=== PATIENT | female | born 1955 | race Caucasian/White ===

== ENCOUNTER → 2020-08-14 | Outpatient (CLI) | payer OTHER ==
[~2020-08-14] MED LIST: FAMOTIDINE 20 M20 MG PO; METOCLOPRAM5 MG/5 M3 PO; ZOFRAN ODT4 MG PO; ZPAK PO
== END ==
LOC: LAB 15:52
PROVIDERS: ATTEND Hospitalist
DX: Z20.828 Contact with and (suspected) exposure to other viral communicable diseases (principal)

== ENCOUNTER 2020-08-29 16:55 | Emergency (ER) | payer OTHER ==
[~2020-08-29] VITALS: Ht 167.6 cm; Wt 85.7 kg
[2020-08-29] MEDS ORDERED: METOCLOPRAM5 MG/5 M3 PO (17:13)
[2020-08-29] MEDS ORDERED: FAMOTIDINE 20 M20 MG PO (17:13)
[2020-08-29 17:54] LABS: ABSOLUTE NEUTROPHILS 2.4 thou/uL (1.4-8.2); BASOPHILS 0.4 % (0.0-2.0); HEMATOCRIT 39.8 % (37.0-47.0); HEMOGLOBIN 13.8 gm/dL (12.0-15.0); LYMPHOCYTES 27.2 % (24.0-44.0); MCH 29.8 pg (26.0-34.0); MCHC 34.6 g/dL (28.0-37.0); MCV 86.2 fL (80.0-100.0); MONOCYTES 9.6 % (1.0-8.0); PLATELET COUNT 317 thou/uL (150-400); POLYS 62.8 % (36.0-66.0); RBC 4.62 mil/uL (4.20-5.00); RDW 12.6 % (10.5-14.5); WBC 3.9 thou/uL (4.0-11.0)
[2020-08-29 17:57] LABS: CALCIUM 8.9 mg/dL (8.5-10.1); CREATININE 0.7 mg/dL (0.6-1.0); POTASSIUM 3.4 mmol/L (3.5-5.1)
[2020-08-29 18:04] LABS: ALBUMIN 3.1 g/dL (3.4-5.0); DIRECT BILIRUBIN 0.2 mg/dL (<0.1-0.2); TOTAL BILIRUBIN 0.7 mg/dL (0.2-1.0)
[2020-08-29 18:26] LABS: URINE BILIRUBIN 1+ (Negative); URINE BLOOD NEGATIVE (Negative); URINE CLARITY CLEAR; URINE COLOR YELLOW; URINE GLUCOSE-RANDOM* 3+ (Negative); URINE KETONES 2+ (Negative); URINE LEUKOCYTES-REFLEX NEGATIVE (Negative); URINE NITRITE-REFLEX NEGATIVE (Negative); URINE PROTEIN (DIPSTICK) 2+ (Negative)
[2020-08-29 18:27] LABS: ICTOTEST (BILI CONFIRMATORY) Negative (Negative)
[2020-08-29 18:31] LABS: BACTERIA-REFLEX 1-9 Few /HPF (None Seen); CRYSTALS None Seen /LPF (None Seen); YEAST-REFLEX Present (None Seen)
[2020-08-29 18:32] LABS: CASTS None Seen /LPF (None Seen); SQUAMOUS 0-3 Few /LPF (0-3); URINE RBC None Seen /HPF (0-2); URINE WBC-REFLEX 0-5 Rare /HPF (0-5)
[2020-08-29 20:09] LABS: BE(vivo) -4.2 mmol/L (-2 to +3); HCO3 19.4 mmol/L (22.0-26.0); PCO2 VENOUS 31.7 mmHg (41.0-51.0); PO2 VENOUS 75.6 mmHg (35.0-45.0)
[2020-08-29] MEDS ORDERED: ZOFRAN ODT4 MG PO (20:38)
[2020-08-29] MEDS ORDERED: ZPAK PO (20:38)
[2020-08-29 21:53] VITALS: BP 131/82
== END 2020-08-29 21:53 | disposition home or self-care (01) ==
LOC: ER 16:55
PROVIDERS: Emergency Medicine
DX: U07.1 COVID-19 (principal); R11.2 Nausea with vomiting, unspecified; E11.9 Type 2 diabetes mellitus without complications; I10 Essential (primary) hypertension; Z79.899 Other long term (current) drug therapy; Z88.6 Allergy status to analgesic agent; Z88.2 Allergy status to sulfonamides; Z88.8 Allergy status to other drugs, medicaments and biological substances

== ENCOUNTER 2020-08-30 18:19 | Inpatient (IN) | payer OTHER ==
[~2020-08-30] VITALS: Ht 167.6 cm; Wt 83.0 kg
[2020-08-30 18:20] VITALS: BP 125/83
[2020-08-30 18:55] LABS: ABSOLUTE NEUTROPHILS 2.1 thou/uL (1.4-8.2); BASOPHILS 1.9 % (0.0-2.0); HEMATOCRIT 40.5 % (37.0-47.0); HEMOGLOBIN 13.6 gm/dL (12.0-15.0); MCH 29.2 pg (26.0-34.0); MCHC 33.6 g/dL (28.0-37.0); MONOCYTES 9.7 % (1.0-8.0); PLATELET COUNT 330 thou/uL (150-400); POLYS 52.4 % (36.0-66.0); RBC 4.66 mil/uL (4.20-5.00); RDW 12.4 % (10.5-14.5); WBC 4.1 thou/uL (4.0-11.0)
[2020-08-30 19:05] LABS: CALCIUM 8.7 mg/dL (8.5-10.1); CREATININE 0.8 mg/dL (0.6-1.0); POTASSIUM 3.2 mmol/L (3.5-5.1)
[2020-08-30 19:11] LABS: TOTAL BILIRUBIN 0.7 mg/dL (0.2-1.0); TOTAL PROTEIN 8.1 g/dL (6.4-8.2)
[2020-08-30 19:28] VITALS: BP 121/74
[2020-08-30 20:57] VITALS: BP 121/74
[2020-08-30 21:54] VITALS: BP 114/58
[2020-08-31] VITALS (16 sets, daily range): BP systolic 101–135; BP diastolic 50–79
--- NOTE | 2020-08-31 02:52 | NUR ---
PT ADMITTED TO ICU 241. STEADY GAIT UP TO BSC. PT STATES SHE FEELS TERRIBLE, AND HURTS ALL OVER-FENTANYL ORDERED. 02SAT 95 ON RA. NO RESP DISTRESS. DOES BECOME TACHYCARDIC WITH ACTIVITY. ST WITH OCCAS PVC. MAINT IV STARTED. TEMP 98.4 AX. PT SHIVERING. PLACED IN ENHANCED PRECAUTIONS. WILL CONT TO MONITOR
[2020-08-31 07:15] LABS: HEMATOCRIT 39.7 % (37.0-47.0); MCHC 32.8 g/dL (28.0-37.0); MCV 88.2 fL (80.0-100.0); RBC 4.5 mil/uL (4.20-5.00); RDW 12.7 % (10.5-14.5); WBC 3.2 thou/uL (4.0-11.0)
[2020-08-31 08:40] LABS: CALCIUM 8.8 mg/dL (8.5-10.1); CREATININE 0.7 mg/dL (0.6-1.0); POTASSIUM 4.2 mmol/L (3.5-5.1)
--- NOTE | 2020-08-31 09:53 | NUR ---
PT WAS SAD/TEARFUL IN THE MORNING, STATED GRIEF ABOUT [place] COVID. RN REASSURED TO THE PT THAT AT THE ICU SHE WILL RECEIVE THE HIGHEST QUALITY CARE UNDER CLOSE SUPERVISON. PT STATED UNDERSTANDING AND WAS ABLE TO BE CONSOLED. MEDICATION/CAREPLAN/GOALS WERE DISCUSSED. PT VERBALIZED UNDERSTANDING. PT AMBULATED TO THE BATHROOM AFTER SET UP INDEPNDANTLY, TOLERATED FAIRLY. PT WAS LATER SEEN TO DESAT 93% ON RA WHILE RESTING, RN PLACED THE PT BACK ON NC AT 1L. BS THIS MORNING WAS HIGH AT 272. PT IS TOLERATING PO WELL, HAD COUPLE CUPS OF JELLO.
--- NOTE | 2020-08-31 11:45 | NUR ---
TALKED WITH DAUGHTER ON THE PHONE. UPDATE GIVEN ON PT CONDITION.
[2020-09-01] VITALS (19 sets, daily range): BP systolic 80–135; BP diastolic 46–88
--- NOTE | 2020-09-01 03:07 | NUR ---
PT HAS BEEN AFEBRILE SO FAR THIS SHIFT. SPO2 >90% ON RA. MILDLY SOA WITH EXERTION WHEN GETTING UP THE TO BSC. ADEQUATE URINE OUTPUT. PT C/O GENERALIZED BODY ACHES. PRN FENTANYL GIVEN. PT REFUSED TYLENOL FOR PAIN, STATING IT UPSETS HER STOMACH. PT WAS TEARFUL EARLIER IN THE NIGHT; C/O FEELING GENERALLY UNWELL AND FATIGUED. ZOFRAN AND TRAZODONE GIVEN AT BEDTIME. PT HAS SINCE BEEN SLEEPING MOST OF THE NIGHT. RESPIRATIONS EVEN AND UNLABORED. SHE CALLS OUT APPROPRIATELY FOR ASSISTANCE WHEN NEEDED. PROGRESSING SLOWLY TOWARD POC GOALS. WILL CONTINE TO MONITOR.
[2020-09-01 05:56] LABS: ABSOLUTE NEUTROPHILS 2.9 thou/uL (1.4-8.2); BASOPHILS 0.3 % (0.0-2.0); HEMATOCRIT 34.7 % (37.0-47.0); HEMOGLOBIN 11.7 gm/dL (12.0-15.0); LYMPHOCYTES 29.2 % (24.0-44.0); MCH 29.1 pg (26.0-34.0); MCHC 33.6 g/dL (28.0-37.0); MCV 86.7 fL (80.0-100.0); MONOCYTES 8.8 % (1.0-8.0); PLATELET COUNT 323 thou/uL (150-400); POLYS 61.7 % (36.0-66.0); RBC 4.01 mil/uL (4.20-5.00); RDW 12.2 % (10.5-14.5); WBC 4.7 thou/uL (4.0-11.0)
--- NOTE | 2020-09-01 06:01 | NUR ---
0594 - SPOKE WITH PT'S DAUGTHER (EMMETT). UPDATE PROVIDED ON HOW PT DID DURING THE NIGHT. PT SLEPT MOST OF THE NIGHT. AFEBRILE. REMAINS ON RA. WILL GIVE REPORT TO ONCOMING NURSE.
[2020-09-01 06:04] LABS: FIBRINOGEN 396.6 mg/dL (210-360); PROTIME 10.7 Seconds (9.3-11.4)
[2020-09-01 06:20] LABS: ALBUMIN 2.3 g/dL (3.4-5.0); CALCIUM 8.8 mg/dL (8.5-10.1); CREATININE 0.6 mg/dL (0.6-1.0); POTASSIUM 3.7 mmol/L (3.5-5.1); TOTAL BILIRUBIN 0.3 mg/dL (0.2-1.0); TOTAL PROTEIN 6.7 g/dL (6.4-8.2)
--- NOTE | 2020-09-01 09:05 | NUR ---
PT HAD LARGE EMESIS FROM HER BREAKFAST. PT ATE ALL HER BREAKFAST EXCEPT HER CEREAL AND DRANK BOTH OF HER ENSURE. PT HAD APPOX 400 ML OF EMESIS
--- NOTE | 2020-09-01 11:31 | NUR ---
chart review. unable to visit with [facility] on ppe, + covid and is resting. IV meds cont. will cont following as needed for dc needs.
--- NOTE | 2020-09-01 11:40 | NUR ---
TALKED WITH DAUGHTER ON PHONE. UPDATED ON PT CONDITION AND PLAN OF CARE.
--- NOTE | 2020-09-01 12:21 | NUR ---
TALKED WITH DAUGHTER ON PHONE. UPDATED ON PT CONDITION AND PLAN OF CARE.
--- NOTE | 2020-09-01 17:57 | NUR ---
PT PROGRESSING TOWARDS GOALS. ATE LUNCH AND DINNER WITH NO NAUSEA. PO INTAKE GOOD. URINE OUTPUT GOOD. AWAITING ROOM OUT OF ICU. RA THROUGHOUT THE SHIFT.
--- NOTE | 2020-09-01 22:39 | NUR ---
ASSUMED CARE OF PATIENT AT 1900. VERY TEARFUL, WORRIED SHE WILL GET WORSE. BECOMING MORE TIRED. O2 SAT'S IN THE LOW 90'S R/A. ORDERS TO TRANSFER TO . WILL SEND WITH ALL BELONGINGS.
--- NOTE | 2020-09-02 00:24 | NUR ---
RECEIVED PHONE REPORT FROM KIT IN ICU AT 2300. TRANSPORTED PT BY W/C FROM ICU TO ROOM 358. PT AFEBRILE, ON RA, TRANFERRED UNDER HER OWN POWER. PLACED ON TELE AND VS COMPLETED. WILL CONTINUE TO MONITOR.
[2020-09-02 03:22] VITALS: BP 115/73
[2020-09-02 07:03] LABS: ALBUMIN 2.3 g/dL (3.4-5.0); DIRECT BILIRUBIN < 0.1 mg/dL (<0.1-0.2); SGOT 13 U/L (15-37); SGPT 11 U/L (30-65); TOTAL BILIRUBIN 0.4 mg/dL (0.2-1.0); TOTAL PROTEIN 6.3 g/dL (6.4-8.2)
[2020-09-02 08:27] VITALS: BP 107/65
[2020-09-02 11:38] VITALS: BP 105/71
--- NOTE | 2020-09-02 16:03 | NUR ---
MARIVEL reviewed chart and spoke with nursing and attending physician. Pt was transferred to from ICU. Pt is in Enhanced Isolation due to COVID-19. Pt is afebrile and not requiring O2. Pt is on IV abx and completing course of Remdesivir. Therapy is working with pt to assist with recommendations for discharge. MARIVEL placed call to pt's room. No answer. Pt is an employee at [employer] and has insurance. MARIVEL discussed case with 5N rehabilitation liaison for possible 5N eval if post-acute care is needed. MARIVEL is following to assist as needed with discharge planning.
[2020-09-02 16:35] VITALS: BP 105/70
--- NOTE | 2020-09-02 19:41 | NUR ---
ASSUMED CARE APPROX 0700. PT ALERT AND ORIENTED X4. ASSESSMENTS CHARTED AND VSS. PT AFEBRILE THIS SHIFT. ON ROOM AIR W/O DISTRESS NOTED. SR TO SB ON TELE MONITOR. PT DENIED N/V THIS SHIFT UNTIL ABOUT 1715. PT VOMITED AFTER DINNER. REPORTS RELIEF AFTER ZOFRAN. SLOWLY PROGRESSING TOWARDS POC GOALS.
[2020-09-02 20:15] VITALS: BP 118/75
[2020-09-03 04:58] VITALS: BP 114/80
[2020-09-03 06:13] LABS: ALBUMIN 2.5 g/dL (3.4-5.0); CALCIUM 8.6 mg/dL (8.5-10.1); CREATININE 0.5 mg/dL (0.6-1.0); DIRECT BILIRUBIN 0.1 mg/dL (<0.1-0.2); TOTAL BILIRUBIN 0.4 mg/dL (0.2-1.0); TOTAL PROTEIN 6.7 g/dL (6.4-8.2)
[2020-09-03 06:15] LABS: POTASSIUM 2.9 mmol/L (3.5-5.1)
--- NOTE | 2020-09-03 06:27 | NUR ---
ASSUMED CARE AT 1900. PT REPORTS GENERALIZED BODY ACHES 07/16; GAVE FENTANYL MULTIPLE TIMES OVERNIGHT. PT REPORTS FEELING CONSTIPATED AND NOT GETTING RELIEF WITH PRUNE JUICE; PT ASKED TO TAKE MIRALAX WITH AM MEDS. POTASSIUM CRITICAL LOW 2.9, OBTAINED ORDER FOR PO DOSE REPLACEMENT. NO OTHER CONCERNS, WILL CONTINUE TO MONITOR.
[2020-09-03 08:40] VITALS: BP 152/93
[2020-09-03 12:25] VITALS: BP 123/73
--- NOTE | 2020-09-03 13:04 | NUR ---
cm f/u w/pt to discuss d/c planning. pt stated she lives in an apt alone, usu active and independent w/adls. pt has good friend/family support. pt has 0 DMEs . Denies hx w/snf or hh. pt works at [employer].
[2020-09-03 17:00] VITALS: BP 110/68
--- NOTE | 2020-09-03 18:32 | NUR ---
assumed care of pt at 0700. pt aox4 in no acute distress. intermittent pain and nausea - good relief with current med regimen. on room air. up ad rick. anticipating possible d/c tomorrow.
[2020-09-03 19:08] VITALS: BP 113/77
[2020-09-04 03:58] VITALS: BP 130/88
--- NOTE | 2020-09-04 04:43 | NUR ---
POC FOR PT WAS PAIN MANAGEMENT AND NAUSEA CONTROL. PT REQUEST Q4 IV PAIN MEDICATION. PT ON ROOM AIR. PT FACETIMED WITH DAUGHTER THIS EVENING. DURING ASSESSMENT PT STILL EXTREMELY EXHAUSTED AND LACK OF ENERGY. 3RD DOSE OF REMDESIVIR GIVEN. PT WANTING TO GO HOME TODAY. VSS AND NO FEVER.
[2020-09-04 06:51] LABS: ALBUMIN 1.8 g/dL (3.4-5.0); CREATININE 0.5 mg/dL (0.6-1.0); DIRECT BILIRUBIN 0.1 mg/dL (<0.1-0.2); TOTAL BILIRUBIN 0.4 mg/dL (0.2-1.0); TOTAL PROTEIN 6.2 g/dL (6.4-8.2)
[2020-09-04 07:30] VITALS: BP 130/90
[2020-09-04 10:37] LABS: HEMOGLOBIN 11.9 gm/dL (12.0-15.0); MCH 28.8 pg (26.0-34.0); MCV 87.3 fL (80.0-100.0); PLATELET COUNT 430 thou/uL (150-400); RBC 4.12 mil/uL (4.20-5.00); RDW 12.8 % (10.5-14.5); WBC 4.9 thou/uL (4.0-11.0)
[2020-09-04 10:53] LABS: CALCIUM 8.7 mg/dL (8.5-10.1); CREATININE 0.6 mg/dL (0.6-1.0); MAGNESIUM 1.6 mg/dL (1.8-2.4); PHOSPHORUS 3.4 mg/dL (2.5-4.9); POTASSIUM 3.3 mmol/L (3.5-5.1)
[2020-09-04 11:09] LABS: ABSOLUTE NEUTROPHILS 2.6 thou/uL (1.4-8.2)
[2020-09-04 11:10] LABS: PLATELET ESTIMATE INCREASED
[2020-09-04 11:30] VITALS: BP 108/72
--- NOTE | 2020-09-04 14:23 | NUR ---
SW reviewed chart and spoke with nursing and attending physician. Pt remains in Enhanced Isolation due to COVID-19. Pt to complete course of Remdesivir today. Pt is afebrile and not requiring O2. Pt is on IV abx. SW spoke with pt via phone to discuss discharge plan. Pt declines having any needs at time of discharge. Attending physician states that pt will need a rest/exericise oximetry prior to discharge. Should pt need home O2, referral can be sent to [facility], as they are in-network with pt's insurance. Pt's insurance information updated in [place] today. SW is available to assist as needed.
[2020-09-04 15:39] VITALS: BP 112/78
--- NOTE | 2020-09-04 16:12 | NUR ---
ASSUMED CARE OF PT AT 0700. PT AOX4 COMPLAINS OF NAUSEA AND PAIN - GOOD RELIEF W/ CURRENT MED REGIMEN. ON ROOM AIR. UP AD JULISSA. ANTICIPATING D/C TOMORROW IF CONT TO MAKE PROGRESS. WCM.
[2020-09-04 19:38] VITALS: BP 123/82
[2020-09-05 03:54] VITALS: BP 122/55
[2020-09-05 06:19] LABS: ABSOLUTE NEUTROPHILS 4.9 thou/uL (1.4-8.2); BASOPHILS 0.3 % (0.0-2.0); EOSINOPHILS 0.1 % (0.0-3.0); HEMOGLOBIN 11.8 gm/dL (12.0-15.0); LYMPHOCYTES 26.4 % (24.0-44.0); MCH 29.2 pg (26.0-34.0); MCHC 33.6 g/dL (28.0-37.0); MCV 86.8 fL (80.0-100.0); MONOCYTES 7.9 % (1.0-8.0); PLATELET COUNT 482 thou/uL (150-400); POLYS 65.3 % (36.0-66.0); RBC 4.03 mil/uL (4.20-5.00); RDW 12.8 % (10.5-14.5); WBC 7.4 thou/uL (4.0-11.0)
[2020-09-05 06:33] LABS: ALBUMIN 2.2 g/dL (3.4-5.0); CALCIUM 7.9 mg/dL (8.5-10.1); CREATININE 0.6 mg/dL (0.6-1.0); MAGNESIUM 1.6 mg/dL (1.8-2.4); PHOSPHORUS 3.5 mg/dL (2.5-4.9); POTASSIUM 3.5 mmol/L (3.5-5.1); TOTAL BILIRUBIN 0.3 mg/dL (0.2-1.0); TOTAL PROTEIN 6.2 g/dL (6.4-8.2)
--- NOTE | 2020-09-05 06:58 | NUR ---
Medicated for generalized pain and nausea with some relief. She slept some and intermittently during the night. Up ad rick in room with steady gait. Tolerating room air well with no respiratory distress. Cont. on enhanced precaution ,afebrile. Making some progress towards care plan goals.
[2020-09-05 07:47] VITALS: BP 110/72
[2020-09-05 11:41] VITALS: BP 113/70
[2020-09-05 15:27] VITALS: BP 124/81
[2020-09-05] MEDS ORDERED: MUCINEX600 MG PO (15:47)
[2020-09-05] MEDS ORDERED: TRAZODONE HCL50 MG PO (15:47)
[2020-09-05] MEDS ORDERED: VITAMIN C1000 MG PO (15:48)
[2020-09-05] MEDS ORDERED: VITAMIN B-1100 M2 PO (15:48)
[2020-09-05] MEDS ORDERED: VITAMIN D325 MC1 PO (15:49)
[2020-09-05] MEDS ORDERED: PREDNISONE 5 MG5 M1 PO (15:50)
[2020-09-05] MEDS ORDERED: COMBIVENT RESPIM4 GM INH (15:50)
--- NOTE | 2020-09-05 19:31 | NUR ---
PATIENT HAS ASKED FOR PAIN MEDICATION Q4 STATING SHE HAS GENERALIZED BODY PAIN. WILL NOT DESCRIBE THE EXACT NATURE OF HER PAIN. SHE IS NOW RESTING IN BED. PLEASANT WITH CARE. WILL CONT WTHT PLAN OF CARE.
[2020-09-05 19:51] VITALS: BP 118/66
[2020-09-06 03:41] VITALS: BP 121/71
--- NOTE | 2020-09-06 04:40 | NUR ---
Pt. very frustrated at beginning of shift.She stated she had a rough day. Offered trazodone to help her sleep but she declined at first. Later on she agreed to take it but said it didn't help at all. Medicated for pain and nausea x1 then requesting to have it again as soon as she can have her next dose which is close to 0700. She verbalized it's for generalized pain and po meds usually does not work for her and makes her sick of her stomach. She has been tolerating room air well with no c/o shortness of breath. Cont. on enhanced precaution , afebrile. Up ad rick in room with steady gait. Making progress towards care plan goals.
[2020-09-06 07:36] VITALS: BP 125/84
[2020-09-06 09:00] LABS: BASOPHILS 0.7 % (0.0-2.0); EOSINOPHILS 0.5 % (0.0-3.0); HEMATOCRIT 38.5 % (37.0-47.0); HEMOGLOBIN 12.7 gm/dL (12.0-15.0); LYMPHOCYTES 42.4 % (24.0-44.0); MCH 28.8 pg (26.0-34.0); MCV 87.5 fL (80.0-100.0); MONOCYTES 7.3 % (1.0-8.0); POLYS 49.1 % (36.0-66.0); RDW 12.9 % (10.5-14.5); WBC 6.1 thou/uL (4.0-11.0)
[2020-09-06 09:03] LABS: PLATELET COUNT 584 thou/uL (150-400)
[2020-09-06 09:17] LABS: ALBUMIN 2.5 g/dL (3.4-5.0); CALCIUM 8.6 mg/dL (8.5-10.1); CREATININE 0.6 mg/dL (0.6-1.0); MAGNESIUM 1.9 mg/dL (1.8-2.4); POTASSIUM 3.5 mmol/L (3.5-5.1); TOTAL BILIRUBIN 0.4 mg/dL (0.2-1.0); TOTAL PROTEIN 6.9 g/dL (6.4-8.2)
[2020-09-06 11:29] VITALS: BP 105/69
[2020-09-06 15:43] VITALS: BP 111/74
[2020-09-06] MEDS ORDERED: GLIPIZIDE 10 MG10 MG PO (19:21)
--- NOTE | 2020-09-06 21:25 | NUR ---
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 CASE MANAGEMENT TO CALL TOMORROW TO SET UP HOME HEALTH. PRESCRIPTIONS REVIEWED AND ELECTRONICALLY SENT TO [facility] ON [address]. HOME MEDICATIONS OBTAINED AND RETURNED TO PATIENT. ESCORTED TO CAR VIA WHEELCHAIR DAUGHTER PROVIDED WITH COPY OF DISCHARGE INSTRUCTIONS AND ALSO REVIEWED THEM WITH HER.
[2020-09-07 12:57] VITALS: BP 111/74
[2020-09-07] MEDS ORDERED: FREESTYLE LITE1 EAC1 MC (15:51)
[2020-09-07] MEDS ORDERED: FREESTYLE LANC1 EACH MISCELL (15:51)
== END 2020-09-06 21:28 | disposition home health service (06) | DRG 871 ==
LOC: ER 18:19 → 3W 19:14 → EROBS 19:14 → ICU 22:28 → 3W 09-01 23:37
PROVIDERS: Emergency Medicine; Internal Medicine; Nurse Practitioner Family; Specialist; ADMIT Hospitalist; ATTEND Hospitalist
DX: A41.89 Other specified sepsis (principal); U07.1 COVID-19; J12.89 Other viral pneumonia; J96.01 Acute respiratory failure with hypoxia; E87.1 Hypo-osmolality and hyponatremia; E46 Unspecified protein-calorie malnutrition; K31.84 Gastroparesis; E11.43 Type 2 diabetes mellitus with diabetic autonomic (poly)neuropathy; E87.6 Hypokalemia; D64.9 Anemia, unspecified; E11.649 Type 2 diabetes mellitus with hypoglycemia without coma; D69.6 Thrombocytopenia, unspecified; I10 Essential (primary) hypertension; Z79.899 Other long term (current) drug therapy; Z88.2 Allergy status to sulfonamides; Z88.7 Allergy status to serum and vaccine; Z88.8 Allergy status to other drugs, medicaments and biological substances; Z68.29 Body mass index [BMI] 29.0-29.9, adult; Z23 Encounter for immunization
CPT/HCPCS: 10078; 10203; 10879

== ENCOUNTER → 2020-09-18 | Outpatient (CLI) | payer OTHER ==
[~2020-09-18] MED LIST changes: +COMBIVENT RESPIM4 GM INH; +FREESTYLE LANC1 EACH MISCELL; +FREESTYLE LITE1 EAC1 MC; +GLIPIZIDE 10 MG10 MG PO; +MUCINEX600 MG PO; +PREDNISONE 5 MG5 M1 PO; +TRAZODONE HCL50 MG PO; +VITAMIN B-1100 M2 PO; +VITAMIN C1000 MG PO; +VITAMIN D325 MC1 PO
== END ==
LOC: RAD 09:14
PROVIDERS: ATTEND Specialist
DX: J98.4 Other disorders of lung (principal); R91.8 Other nonspecific abnormal finding of lung field; U07.1 COVID-19; J12.89 Other viral pneumonia

== ENCOUNTER → 2020-10-09 | Outpatient (CLI) | payer OTHER | LOC: RAD 11:48 | PROVIDERS: ATTEND Specialist | DX: U07.1 COVID-19 (principal) ==

== ENCOUNTER 2021-03-26 09:24 | Inpatient (IN) | payer OTHER ==
[~2021-03-26] VITALS: Ht 167.6 cm; Wt 92.5 kg
[2021-03-26 09:29] VITALS: BP 150/104
[2021-03-26] MEDS ORDERED: GABAPENTIN600 M1 PO ×2 (09:45→09:46)
[2021-03-26] MEDS ORDERED: LYRICA100 MG PO (09:46)
[2021-03-26 10:27] LABS: ABSOLUTE NEUTROPHILS 3.6 thou/uL (1.4-8.2); BASOPHILS 0.7 % (0.0-2.0); HEMATOCRIT 38.6 % (37.0-47.0); HEMOGLOBIN 13.4 gm/dL (12.0-15.0); LYMPHOCYTES 33.5 % (24.0-44.0); MCHC 34.6 g/dL (28.0-37.0); MCV 86.7 fL (80.0-100.0); MONOCYTES 5.6 % (1.0-8.0); PLATELET COUNT 346 thou/uL (150-400); POLYS 59.2 % (36.0-66.0); RBC 4.45 mil/uL (4.20-5.00); RDW 13.2 % (10.5-14.5)
[2021-03-26 10:36] LABS: ANION GAP 7 mmol/L (7-16); BUN 6 mg/dL (7-18); CALCIUM 7.7 mg/dL (8.5-10.1); CHLORIDE 104 mmol/L (98-107); CO2 26 mmol/L (21-32); CREATININE 0.7 mg/dL (0.6-1.0); GLUCOSE 291 mg/dL (74-106); POTASSIUM 3.2 mmol/L (3.5-5.1); SODIUM 137 mmol/L (136-145)
[2021-03-26 10:42] LABS: APTT 24.2 Seconds (24.5-32.8); D-DIMER 1.29 ug/mLFEU (0.19-0.50); INR 0.99; PROTIME 10.8 Seconds (10.5-12.1)
[2021-03-26 10:46] LABS: ALBUMIN 2.8 g/dL (3.4-5.0); LIPASE 62 U/L (73-393); SGOT 8 U/L (15-37); SGPT 13 U/L (14-59); TOTAL BILIRUBIN 0.5 mg/dL (0.2-1.0); TOTAL PROTEIN 6.5 g/dL (6.4-8.2); TROPONIN-I <0.06 ng/mL (<0.06)
--- NOTE | 2021-03-26 11:37 | EKG ---
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 BETH : 1955 Requested By: Ermias Hector Order Number: [id number] MD: Kurt Garcia Measurements Intervals [place] Rate: 90 P: 40 VA: 164 QRS: -25 QRSD: 94 T: 45 QT: 379 QTc: 464 Interpretive Statements Sinus rhythm Probable left atrial enlargement Borderline left axis deviation No previous ECG available for comparison Electronically Signed On 03-26-2021 11:37:10 CDT by Kurt Garcia [email or web address] <ELECTRONICALLY SIGNED> By: Kurt Garcia MD, [facility] 03/26/21 1137 0932 1 Kurt Garcia MD, FACC /EPI
[2021-03-26 13:13] VITALS: BP 138/87
[2021-03-26 13:54] VITALS: BP 146/92
[2021-03-26 14:00] VITALS: BP 150/98
--- NOTE | 2021-03-26 14:31 | NUR ---
ASSESSMENT: CM REVIEWED CHART AND SPOKE WITH PATIENT AND THE BEDSIDE. PT IS ALERT AND ORIENTED X4. PT WAS ADMITTED DUE TO CHEST PAIN. PT HAS PAST HX OF COVID LAST FALL AND REPORTS HAVING BOTH PFIZER VACCINATIONS. PT REPORTS THAT SHE LIVES IN AN APT ALONE. PT REPORTS THAT SHE HAS ABOUT 20 STEPS WITH HANDRAILS. PT REPORTS BEING FULLY INDEPENDENT WITH ADLS AND AMBULATION. PT REPORTS HAVING HH IN THE PAST BUT UNSURE WHAT AGENCY. PT STATES SHE DOES NOT ANTICIPATE HAVING ANY NEEDS AT DISCHARGE. CM WILL CONTINUE TO FOLLOW TO ASSIST NEEDED.
[2021-03-26] MEDS ORDERED: NEURONTIN600 MG PO (14:37)
[2021-03-26 20:15] VITALS: BP 136/84
--- NOTE | 2021-03-27 02:54 | NUR ---
PT IS ALERT AND ORIENTED X4. PAIN MEDS GIVEN FOR COMPLAINTS OF PAIN. SEE MAR FOR TIME OF ADMINISTRATION. AFTER MEDS PTIS SLEEPING. LUNGS ARE DIMINISHED. ABDOMEN IS ROUND AND SOFT. CALL LIGHT WITHIN REACH IF NEEDS NURSING ASSISTANCE PER STAFF AT THIS TIME. AND LOVENOX SHOT WAS GIVEN IM ORDERED FOR PE AT THIS TIME. CARE PLAN IN PLACE.
[2021-03-27 04:45] VITALS: BP 110/66
[2021-03-27 04:50] LABS: HEMATOCRIT 41.3 % (37.0-47.0); HEMOGLOBIN 13.5 gm/dL (12.0-15.0); MCH 28.5 pg (26.0-34.0); MCHC 32.6 g/dL (28.0-37.0); MCV 87.5 fL (80.0-100.0); RBC 4.72 mil/uL (4.20-5.00); WBC 5.1 thou/uL (4.0-11.0)
[2021-03-27 05:04] LABS: CREATININE 0.5 mg/dL (0.6-1.0); MAGNESIUM 1.8 mg/dL (1.8-2.4); POTASSIUM 3.7 mmol/L (3.5-5.1)
[2021-03-27 07:44] VITALS: BP 123/84
[2021-03-27 07:48] VITALS: BP 123/84
--- NOTE | 2021-03-27 09:43 | NUR ---
ORDERS RECEIVED FOR EVAL AND TREAT. SPOKE WITH Pt WHO STATES SHE IS HAVING NO DIFFICULTY WITH HER MOBILITY. OBSERVED HER GET OUT OF BED, STAND AND AMBULATE IN HER ROOM WITHOUT DIFFICULTY. Pt DECLINING FORMAL P.T. EVAL BUT APPEARS SAFE FOR HOME WHEN MEDICALLY CLEAR
[2021-03-27 11:13] VITALS: BP 144/81
[2021-03-27 15:02] VITALS: BP 113/72
--- NOTE | 2021-03-27 17:28 | NUR ---
ASSESSMENT CHARTED - MEDS PER MAR - GIVEN FENTANYL AND ZOFRAN X 3 DOSES FOR CO'S OF PAIN AND NAUSEA. RAHAT DIET AND FLUIDS. ACCUCHECKS CHARTED COVERED PER SSI PRN. PT UP TO THE CHAIR THIS AFTERNOON - AMBULATING TO THE BATHROOM INDEPENDANTLY. PT STATES THAT PAIN IS NON CARDIAC IN CHEST AREA. PT APPEARS TO BE RESTING COMFORTABLY IN BED AT THE PRESENT TIME WITH NO CO'S.
[2021-03-27 20:15] VITALS: BP 143/96
--- NOTE | 2021-03-28 02:43 | NUR ---
PT IS ALERT AND ORIRENTED X4. LUNGS ARE DIMINISHED. COMPLAINS OF NON CARDIAC PAIN. PAIN MEDICATION ADMIINISTERED ORDERED. RELIEF WITH PAIN MEDS NOTED PT SLEEPING AFTER MEDS GIVEN TO PT. COMPLAIN OF SOME NAUSEA TOO NOTED TOO AND MEDS ALSO FOR THAT GIVEN TO PT TO HELP. ONGOING NURSING CARE . CALL LIGHT WTIHIN REACH IF NEEDS ASSESSMENTS PER NURSING
[2021-03-28 04:52] VITALS: BP 141/72
[2021-03-28 06:09] LABS: GLYCOHEMOGLOBIN (HGB A1C) 9.3 % (4.8-5.6)
[2021-03-28 07:45] VITALS: BP 133/86
[2021-03-28 11:35] VITALS: BP 144/99
[2021-03-28 15:55] VITALS: BP 133/93
--- NOTE | 2021-03-28 16:09 | NUR ---
ASSUMED CARE SHIFT CHANGE. ASSESSMENTS CHARTED.MEDS GIVEN. VSS. C/O PAIN CHEST AND ABD AREA, MANAGED WITH IV PAIN MEDS. PT VOMITED THIS AFTERNOON PHYSICIAN NOTIFIED IV MEDS ORDERED. ABD SOFT NO DISTENTION. PT C/O ANXIETY MANAGED WITH ATIVAN AND XANAX PER ORDERS. FAMILY UPDATED ON POC. POSSIBLE DC TOMORROW AM. CONTINUING POC. WILL PASS ON REPORT TO JAY AHMADI.
[2021-03-28 19:56] VITALS: BP 131/92
--- NOTE | 2021-03-29 03:26 | NUR ---
PT IS ALERT AND ORIENTED X4. LUNGS ARE CLEAR ON ROOM AIR. ABDOMEN IS SOFT AND NONTENDER ROUND. COMPLAINS OF NAUSEA AND MEDS GIVEN SEE JAN FOR TIME OF ADMISNISTRATION. COMPLAINS OF CHEST PAIN NON CARDIAC AND LOVENOX GIVEN TIMED ON MAR FOR ADMINISRATION. CALL LIGHT WITHIN REACH IF NEEDS ASSISTANCE. ONGOING NURSING CARE.
[2021-03-29 04:26] VITALS: BP 118/76
[2021-03-29 04:58] LABS: ALBUMIN 2.9 g/dL (3.4-5.0); CALCIUM 8.8 mg/dL (8.5-10.1); CREATININE 0.5 mg/dL (0.6-1.0); MAGNESIUM 1.8 mg/dL (1.8-2.4); POTASSIUM 3.4 mmol/L (3.5-5.1); TOTAL BILIRUBIN 0.6 mg/dL (0.2-1.0)
[2021-03-29] MEDS ORDERED: XARELTO15 MG PO (07:38)
[2021-03-29] MEDS ORDERED: XARELTO20 MG PO (07:39)
[2021-03-29 07:40] VITALS: BP 142/84
[2021-03-29] MEDS ORDERED: LEXAPRO 10 MG T10 M1 PO (07:40)
[2021-03-29 07:45] VITALS: BP 142/84
[2021-03-29 08:43] VITALS: BP 142/84
--- NOTE | 2021-03-29 10:15 | NUR ---
PT CARE ASSUMED AT 0700. ASSESSMENTS CHARTED. MEDICATIONS CHARTED. RFA IV. LFA IV. SINUS TACHYCARDIA. COVID VACCINE X 2. DIET-CC, ACHS. UP AD JULISSA. PT DISCHARGED TO HOME. DISCHARGE PAPERWORK SIGNED. TELEMETRY D/C'D. IV D/C'D. PT REFUSED MORNING MEDICATIONS.
== END 2021-03-29 09:30 | disposition home or self-care (01) | DRG 176 ==
LOC: ER 09:24 → EROBS 12:17 → 2N 13:50
PROVIDERS: Emergency Medicine; ADMIT Internal Medicine; ATTEND Internal Medicine
DX: I26.99 Other pulmonary embolism without acute cor pulmonale (principal); D68.59 Other primary thrombophilia; I10 Essential (primary) hypertension; F41.9 Anxiety disorder, unspecified; E11.43 Type 2 diabetes mellitus with diabetic autonomic (poly)neuropathy; K31.84 Gastroparesis; G47.00 Insomnia, unspecified; I25.10 Atherosclerotic heart disease of native coronary artery without angina pectoris; Z79.84 Long term (current) use of oral hypoglycemic drugs; Z86.16 Personal history of COVID-19; Z79.899 Other long term (current) drug therapy; Z88.2 Allergy status to sulfonamides; Z88.7 Allergy status to serum and vaccine; Z88.8 Allergy status to other drugs, medicaments and biological substances
CPT/HCPCS: 10081

== ENCOUNTER 2021-04-06 11:56 | Inpatient (IN) | payer OTHER ==
[~2021-04-06] VITALS: Ht 167.6 cm; Wt 92.1 kg
[2021-04-06 11:56] VITALS: BP 141/80
[~2021-04-06 11:56] MED LIST changes: +GABAPENTIN600 M1 PO; +LEXAPRO 10 MG T10 M1 PO; +LYRICA100 MG PO; +NEURONTIN600 MG PO; +XARELTO15 MG PO; +XARELTO20 MG PO
[2021-04-06] MEDS ORDERED: DULOXETINE HCL30 MG PO (13:22)
[2021-04-06 13:25] LABS: ABSOLUTE NEUTROPHILS 4.4 thou/uL (1.4-8.2); BASOPHILS 0.8 % (0.0-2.0); EOSINOPHILS 0.1 % (0.0-3.0); HEMATOCRIT 41.4 % (37.0-47.0); LYMPHOCYTES 24.1 % (24.0-44.0); MCHC 33.8 g/dL (28.0-37.0); MCV 85.9 fL (80.0-100.0); PLATELET COUNT 426 thou/uL (150-400); RBC 4.82 mil/uL (4.20-5.00); RDW 13.2 % (10.5-14.5); WBC 6.1 thou/uL (4.0-11.0)
[2021-04-06 13:39] LABS: ANION GAP 13 mmol/L (7-16); BUN 8 mg/dL (7-18); CALCIUM 9.4 mg/dL (8.5-10.1); CHLORIDE 101 mmol/L (98-107); CO2 25 mmol/L (21-32); CREATININE 0.7 mg/dL (0.6-1.0); GLUCOSE 240 mg/dL (74-106); POTASSIUM 3.2 mmol/L (3.5-5.1); SODIUM 139 mmol/L (136-145)
[2021-04-06 13:49] LABS: ALBUMIN 3.6 g/dL (3.4-5.0); AMYLASE 62 U/L (25-115); LIPASE 91 U/L (73-393); SGOT 11 U/L (15-37); SGPT 15 U/L (14-59); TOTAL BILIRUBIN 0.6 mg/dL (0.2-1.0); TOTAL PROTEIN 7.6 g/dL (6.4-8.2); TROPONIN-I <0.06 ng/mL (<0.06)
[2021-04-06 14:51] LABS: URINE BILIRUBIN NEGATIVE (Negative); URINE BLOOD NEGATIVE (Negative); URINE CLARITY CLEAR; URINE COLOR YELLOW; URINE GLUCOSE-RANDOM* NEGATIVE (Negative); URINE KETONES 3+ (Negative); URINE LEUKOCYTES-REFLEX NEGATIVE (Negative); URINE NITRITE-REFLEX NEGATIVE (Negative); URINE PROTEIN (DIPSTICK) 1+ (Negative)
[2021-04-06 14:54] LABS: URINE REDUCING SUBSTANCE NEGATIVE
[2021-04-06 15:05] LABS: BACTERIA-REFLEX >30 Many /HPF (None Seen); CASTS None Seen /LPF (None Seen); CRYSTALS None Seen /LPF (None Seen); MUCUS >6 Heavy strn/LPF (None Seen); SQUAMOUS 4-10 Moderate /LPF (0-3); URINE RBC None Seen /HPF (NONE SEEN); URINE WBC-REFLEX 0-5 Rare /HPF (0-5)
[2021-04-06 15:37] VITALS: BP 131/82
[2021-04-06 17:50] VITALS: BP 140/97
--- NOTE | 2021-04-06 19:42 | NUR ---
Pt. was admitted late during the day shift. She is alert and oriented. Admission assessment and history is completed. Pt. verbalized that she thought she was having some kind of reaction from the ivp toradol. She felt like her lips were itchy and starting to swell. No swelling around the neck and pt. able to swallow without difficulty. No c/o shortness of air. Head of the bed elevated. SAMEERA and Dr. cortes, see new orders in CPOE.
[2021-04-06 20:00] VITALS: BP 102/73
--- NOTE | 2021-04-06 21:15 | NUR ---
Meds given as ordered (see emar). Pt. did verbalize that she was feeling much better. PO pain med also given for abdominal pain with relief (see emar).
--- NOTE | 2021-04-07 04:11 | NUR ---
Pt. rested quietly during the night when checked on during frequent rounds. No c/o shortness of air.
[2021-04-07 05:16] VITALS: BP 132/89
--- NOTE | 2021-04-07 05:45 | NUR ---
Pt. c/o feeling swollen in the face. Under her eyes are puffy. Chantelle CLOTH PRINTING INSPECTOR called (see new orders). No c/o shortness of air. Ambulated to the bathroom with standby assist. Medicated for pain and nausea (see emar).
[2021-04-07 06:47] LABS: CALCIUM 8.7 mg/dL (8.5-10.1); CREATININE 0.7 mg/dL (0.6-1.0); POTASSIUM 3.1 mmol/L (3.5-5.1)
[2021-04-07 08:26] VITALS: BP 142/96
--- NOTE | 2021-04-07 12:08 | NUR ---
PT ADMITTED RELATED TO GASTROPARESIS, FOOD INTOLERANCE, AND DEHYDRATION. CM REVIEWED CHART AND SPOKE WITH CARE TEAM. CM MET WITH PT AT BEDSIDE THIS DAY. PT INDICATED SHE LIVES ALONE IN AN APARTMENT WITH 20 STEPS TO ENTER AND NO STEPS INSIDE. PT HAD BEEN HERE AND DISCHARGED HOME 03/26. 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 PT IS US ON 5S HERE AT [facility]. PT EXPRESSED THAT SHE HAD HH IN THE PAST BUT THAT SHE DOESN'T ANTICPATED ANY NEEDS UPON DC. CM FOLLOWING REGARDING DC PLANNING.
--- NOTE | 2021-04-07 12:59 | NUR ---
Assess due to dx gastroparesis, food intolerance. Pt has hx diabetes, last A1C in March was 9.3. Pt drank most of clear liquid tray and asking if she will be able to eat dinner for tonight. Wt up 20 lb since September. Pt not up to any diet education at this time, voiced stomach pain. Would encourage improved BG control and wt loss to assist with treatment for gastroparesis. RN to followup with physician regarding diet advance. low nutrition risk. available for diet education if pt voices interest.
[2021-04-07 15:00] VITALS: BP 142/87
--- NOTE | 2021-04-07 15:30 | NUR ---
ASSUMED PT CARE THIS AM. PT A&OX4, ABLE TO MAKE NEEDS KNOWN. PATIENT COMPLAINS OF ABDOMINAL PAIN AND NAUSEA. IV PATENT, FLUIDS INFUSING. PATIENT REMAINS CONTINENT, CALLING APPROPRIATELY WHEN NEEDED. PATIENT ON ROOM AIR. TOLERATING DIET WELL. PATIENT COMPLAINS OF CHRONIC NEUROPATHY IN HER FEET BUT OTHERWISE HAS NO NUMBNESS OR TINGLING. FALL PRECAUTIONS ARE IN PLACE, CALL LIGHT WITHIN REACH.
[2021-04-07 19:41] VITALS: BP 139/87
[2021-04-08 07:19] VITALS: BP 132/91
--- NOTE | 2021-04-08 07:36 | NUR ---
Assumed pt care at 1900. A/OX4,VSS. C/o abd pain, N/V. Medicated per EMAR with some relief reported. Pt's IV on RAC infilitrated, inserted on left chest by warehouse general laborer after 3 attempts by floor staff. IVF infusing w/o any problems noted. Resting quietly at this time w/o any distress noted.
[2021-04-08 09:54] VITALS: BP 117/68
--- NOTE | 2021-04-08 11:31 | NUR ---
ASSUMED PT CARE THIS AM. PT A&OX4, ABLE TO MAKE NEEDS KNOWN. PATIENT COMPLAINS OF PAIN IN THE ABDOMEN, RESPONDS WELL TO PAIN MEDICATIONS GIVEN PER EMAR. PATIENT REPORTS NAUSEA THAT IS ALSO RESOLVED WITH MEDICATION PER EMAR. PATIENT HAD AN ELEVATED BP THIS AM, GAVE PAIN MEDICATION AND BP DECREASED. PATIENT IS ON ROOM AIR. IV PATENT, FLUIDS INFUSING. FALL PRECAUTIONS ARE IN PLACE, CALL LIGHT WITHIN REACH. PATIENT REPORTING NEUROPATHY IN HER FEET, BUT NO ADDITIONAL NUMBNESS OR TINGLING.
--- NOTE | 2021-04-08 12:09 | NUR ---
CARE TEAM INDICATED THAT PT MAY BE MEDICALLY STABLE TO DC HOME TOMORROW BLUE. NURSE INDICATED THAT PT AND FAMILY HAD REQUESTED ASSISTANCE WITH COMPLETEING DPOA PAPERWORK YESTERDAY EVENING. CM TO PROVIDE DPOA DOC AND NOTIFY PAVING BLOCK CUTTER. CM FOLLOWING REGARDING DC PLANNING.
[2021-04-08 15:42] VITALS: BP 135/74
[2021-04-08 20:19] VITALS: BP 134/76
--- NOTE | 2021-04-09 01:24 | NUR ---
assumed care approx 1900 evening 04/08. pt alert and oriented x4,appropriate and cooperative. pt lying in bed resting. pt given IV pain med as ordered and pt appears to be sleeping soundly. pt took hs meds with water tolerating well. call light in reach. will continue to monitor.
[2021-04-09 07:28] VITALS: BP 147/87
[2021-04-09 10:46] VITALS: BP 147/87
--- NOTE | 2021-04-09 12:20 | NUR ---
Received awake on bed. Due medications given as prescribed, able to swallow meds w/o difficulty. On room air. Vital signs stable. On MS, not on telemetry; no complains and signs of chest pain, crushing sensation and heaviness. Assisted in ADLs. On soft fiber restricted diet- tolerating well; no nausea, no vomiting and no abdominal pain noted. On blood sugar monitoring, taken and recorded accordingly. Continent of bowel and bladder, able to go to the toilet standby assist. Falls bundle in place. With NS at 75cc/hr, infusing well at L breast. No complains of pain made during assessment. Possible discharge today- a/w physician's rounds. Pt seen and examined by Dr Davis- discharge orders made. Discharge instructions, follow up scheduled given and instructed- no questions asked re: discharge. Discharge forms signed. IV discontinued. No security monitor attached. Pt fetched by her son; brought out of the unit with her personal belongings via wheelchair. Patient discharged.
== END 2021-04-09 13:00 | disposition home or self-care (01) | DRG 73 ==
LOC: ER 11:56 → EROBS 15:39 → 4W 15:39
PROVIDERS: Emergency Medicine; ADMIT Hospitalist; ATTEND Hospitalist
DX: E11.43 Type 2 diabetes mellitus with diabetic autonomic (poly)neuropathy (principal); I26.99 Other pulmonary embolism without acute cor pulmonale; K90.49 Malabsorption due to intolerance, not elsewhere classified; I10 Essential (primary) hypertension; F41.9 Anxiety disorder, unspecified; E87.6 Hypokalemia; E86.0 Dehydration; K31.84 Gastroparesis; F43.23 Adjustment disorder with mixed anxiety and depressed mood; Z60.2 Problems related to living alone; Z79.4 Long term (current) use of insulin; Z86.16 Personal history of COVID-19; Z88.6 Allergy status to analgesic agent; Z88.2 Allergy status to sulfonamides; Z88.8 Allergy status to other drugs, medicaments and biological substances; Z59.0 Homelessness
CPT/HCPCS: 10040

== ENCOUNTER 2021-04-12 11:32 | Inpatient (IN) | payer OTHER ==
[~2021-04-12] VITALS: Ht 167.6 cm; Wt 92.1 kg
[~2021-04-12 11:32] MED LIST changes: +DULOXETINE HCL30 MG PO
[2021-04-12 11:41] VITALS: BP 146/84
[2021-04-12 12:52] LABS: ABSOLUTE NEUTROPHILS 5.4 thou/uL (1.4-8.2); BASOPHILS 0.4 % (0.0-2.0); EOSINOPHILS 0.2 % (0.0-3.0); HEMATOCRIT 46.4 % (37.0-47.0); HEMOGLOBIN 15.7 gm/dL (12.0-15.0); LYMPHOCYTES 25.7 % (24.0-44.0); MCH 29.7 pg (26.0-34.0); MCHC 33.9 g/dL (28.0-37.0); MCV 87.6 fL (80.0-100.0); MONOCYTES 2.8 % (1.0-8.0); POLYS 70.9 % (36.0-66.0); RDW 13.7 % (10.5-14.5); WBC 7.6 thou/uL (4.0-11.0)
[2021-04-12 12:57] LABS: URINE BILIRUBIN NEGATIVE (Negative); URINE BLOOD NEGATIVE (Negative); URINE CLARITY CLEAR; URINE COLOR YELLOW; URINE GLUCOSE-RANDOM* 2+ (Negative); URINE KETONES 3+ (Negative); URINE LEUKOCYTES-REFLEX NEGATIVE (Negative); URINE NITRITE-REFLEX NEGATIVE (Negative); URINE PROTEIN (DIPSTICK) 2+ (Negative); URINE SPECIFIC GRAVITY >= 1.030 (1.005-1.035)
[2021-04-12 12:59] LABS: CALCIUM 9.6 mg/dL (8.5-10.1); CREATININE 0.8 mg/dL (0.6-1.0)
[2021-04-12 13:00] LABS: POTASSIUM 4.4 mmol/L (3.5-5.1)
[2021-04-12 13:07] LABS: TOTAL BILIRUBIN 0.8 mg/dL (0.2-1.0); TOTAL PROTEIN 8.9 g/dL (6.4-8.2)
[2021-04-12 13:09] LABS: BACTERIA-REFLEX 1-9 Few /HPF (None Seen); CASTS None Seen /LPF (None Seen); CRYSTALS None Seen /LPF (None Seen); SQUAMOUS >10 Many /LPF (0-3); URINE RBC None Seen /HPF (NONE SEEN); URINE WBC-REFLEX 0-5 Rare /HPF (0-5)
[2021-04-12 14:11] LABS: PLATELET COUNT 482 thou/uL (150-400)
[2021-04-13 04:43] VITALS: BP 145/88
[2021-04-13 05:05] LABS: HEMATOCRIT 44.7 % (37.0-47.0); HEMOGLOBIN 14.7 gm/dL (12.0-15.0); MCH 28.8 pg (26.0-34.0); MCHC 32.8 g/dL (28.0-37.0); MCV 87.6 fL (80.0-100.0); RBC 5.1 mil/uL (4.20-5.00); RDW 13.8 % (10.5-14.5); WBC 10.5 thou/uL (4.0-11.0)
[2021-04-13 05:23] LABS: CALCIUM 9.7 mg/dL (8.5-10.1); CREATININE 0.7 mg/dL (0.6-1.0)
[2021-04-13 05:28] LABS: POTASSIUM 3.4 mmol/L (3.5-5.1)
[2021-04-13 06:53] VITALS: BP 145/88
--- NOTE | 2021-04-13 08:00 | NUR ---
PAGED PROVIDER AT 07:57 TO NOTIFY OF PT CONTINUED NAUSEA AND DRY HEAVES ALONG WITH ABD PAIN. STATES HE WILL ORDER COMPAZINE FOR PT, UNWILING TO ORDER MORE PAIN MEDICATION AT THIS TIME.
[2021-04-13 08:40] VITALS: BP 122/70
[2021-04-13 16:21] VITALS: BP 135/68
--- NOTE | 2021-04-13 16:57 | NUR ---
ASSUMED CARE OF PT AT 0900 THIS MORNING. PT WAS ADMITTED FOR N/V AND GASTROPARESIS COMPLICATIONS. PT IS A/OX4, NAUSEATED ON ARRIVAL AND VOMITTING DARK LIQUID. PT C/O ABD PAIN GENERAL AND NO RELIEF FROM THE ZOFRAN IVP. SKIN INTACT WITH NO TENTING. UNABLE TO START FLUIDS SOONER DUE TO LACK OF HYDRAULIC DESIGN ENGINEER CORDS FOR THE IV PUMPS. PT HAS IV IN LEFT AC WITH NS AT 100ML/HR. ASSESSMENTS OHERWISE UNREMARKABLE. MEDS AND TX GIVEN NEEDED AND SCHEDULED.
[2021-04-13 19:56] VITALS: BP 148/85
--- NOTE | 2021-04-14 04:24 | NUR ---
Pt. rested quietly at intervals during the night when checked on during frequent rounds. She c/o chronic nausea and had moderate amount of clear colored emesis. Meds given for nausea and abdominal pain (see emar).
[2021-04-14 05:45] LABS: HEMATOCRIT 41.9 % (37.0-47.0); MCH 29.1 pg (26.0-34.0); MCHC 33.3 g/dL (28.0-37.0); MCV 87.3 fL (80.0-100.0); RBC 4.8 mil/uL (4.20-5.00); RDW 13.6 % (10.5-14.5); WBC 12.3 thou/uL (4.0-11.0)
[2021-04-14 05:47] LABS: CALCIUM 8.7 mg/dL (8.5-10.1); CREATININE 0.7 mg/dL (0.6-1.0)
[2021-04-14 06:09] LABS: POTASSIUM 2.2 mmol/L (3.5-5.1)
[2021-04-14 07:26] VITALS: BP 152/83
[2021-04-14 08:58] LABS: MAGNESIUM 1.8 mg/dL (1.8-2.4); PHOSPHORUS 3.5 mg/dL (2.5-4.9)
--- NOTE | 2021-04-14 13:14 | NUR ---
PT TAKEN DOWN FOR EGD. PO POTASSIUM ON HOLD UNTIL PT COMES BACK FROM EGD.
--- NOTE | 2021-04-14 14:31 | NUR ---
PT ADMITTED RELATED TO GASTROPARESIS, FOOD INTOLERANCE, AND LACTIC ACIDOSIS. CM REVIEWED CHART AND SPOKE WITH CARE TEAM. CM MET WITH PT AT BEDSIDE THIS DAY. PT INDICATED SHE LIVES ALONE IN AN APARTMENT WITH 20 STEPS TO ENTER AND NO STEPS INSIDE. PT HAD BEEN HERE AND DISCHARGED HOME 04/08 AND PRIOR TO THAT 03/26. 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 PT IS US ON 5S HERE AT [facility]. PT EXPRESSED THAT SHE HAD HH IN THE PAST BUT THAT SHE DOESN'T ANTICPATED ANY NEEDS UPON DC. PT HAD EGD THIS DAY. CM FOLLOWING REGARDING DC PLANNING.
--- NOTE | 2021-04-14 14:31 | NUR ---
Received consult, pt requesting for information on diet for gastroparesis. Attempted 2 visits today, pt off unit for EGD. Left detailed nutrition information from the Nutrition Care Manual at pt's bedside with RD name/number if pt has questions.
[2021-04-14 19:05] VITALS: BP 127/88
[2021-04-15 05:16] LABS: HEMATOCRIT 39.5 % (37.0-47.0); HEMOGLOBIN 13.4 gm/dL (12.0-15.0); MCH 29.4 pg (26.0-34.0); MCV 86.6 fL (80.0-100.0); RBC 4.56 mil/uL (4.20-5.00); RDW 13.3 % (10.5-14.5); WBC 12.5 thou/uL (4.0-11.0)
[2021-04-15 05:34] LABS: CALCIUM 8.8 mg/dL (8.5-10.1); CREATININE 0.6 mg/dL (0.6-1.0); MAGNESIUM 1.9 mg/dL (1.8-2.4); POTASSIUM 3.2 mmol/L (3.5-5.1)
[2021-04-15 07:26] VITALS: BP 109/86
--- NOTE | 2021-04-15 08:05 | NUR ---
RECEIVED CARE OF THIS PATIENT AT 1900. PATIENT ALERT AND ORIENTED X4. UP TO BATHROOM WITH ASSIST. C/O PAIN, MED GIVEN WITH SMALL AMOUT OF RELIEF. C/O NAUSEA AND VOMITING. ANTI-EMETIC GIVEN WHEN ABLE. EMESIS WAS MOSTLY CLEAR LIQUID WITH SOME UNDIGESTED FOOD. PATIENT GETS CONFUSED EASY AND NEEDS TO HAVE THINGS EXPLAINED TO HER A COUPLE OF TIMES. IV IN L CHEST WITH FLUIDS INFUSING. ACCUCHECK WAS 222 RECEIVED 10 UNITS LISPRO INSULIN. SLEPT OFF AND ON DURING NIGHT.
--- NOTE | 2021-04-15 11:04 | NUR ---
VERY FREQUENT ROUNDING OF PATIENT. PT HAS C/O NAUSEA AND VOMITTING AND PAIN. PT HAS SCHEDULED ANTI NAUSEA MEDICATIONS WELL PRN ANTI NAUSEA MEDICATIONS AND PRN PAIN MEDICATIONS. PT IS AWARE OF TIME FRAME FOR PRN MEDICATIONS AND WILL CALL NURSE'S STATION FOR THESE MEDICATIONS AT EXCACT TIME INTERVAL ALLOWED FOR NEXT DOSE BUT WILL GET VERY UPSET WITH NURSING IF NURSE IS WITH ANOTHER PATIENT AT TIME WHEN SHE CALLS OUT FOR HER PRN MEDICATIONS. PT BECOMES VERY TEARFUL WITH ANY INTERACTION WITH STAFF. THIS RN HAS NOT WITNESSED ANY VOMITTING THIS SHIFT THUS FAR. BED ALARM FOR PT SAFETY PT STATED TO NURSE THAT SHE WAS DIZZY THE LAST TIME SHE SAT UP RIGHT ON SIDE OF BED. WILL CONTINUE TO FREQUENTLY MONITOR PATIENT. PHYSICIAN HAS ROUNDED ON PT THIS AM. NO NEW ORDERS RECEIVED.
--- NOTE | 2021-04-15 11:23 | NUR ---
1056- PAIN REASSESSMENT. PT ASLEEP.
--- NOTE | 2021-04-15 14:38 | NUR ---
PT HAD EGD YESTERDAY. CARE TEAM INDICATED THAT PT IS PROGRESSING SLOWLY TOWARD DC. CM FOLLOWING REGARDING DC PLANNING.
[2021-04-15 15:32] VITALS: BP 123/82
[2021-04-15 19:23] VITALS: BP 141/82
[2021-04-16 07:20] VITALS: BP 143/97
[2021-04-16 07:35] VITALS: BP 143/97
[2021-04-16 07:56] LABS: HEMATOCRIT 40.8 % (37.0-47.0); HEMOGLOBIN 13.9 gm/dL (12.0-15.0); MCH 29.6 pg (26.0-34.0); MCHC 34.1 g/dL (28.0-37.0); MCV 86.8 fL (80.0-100.0); RBC 4.7 mil/uL (4.20-5.00); RDW 13.4 % (10.5-14.5)
[2021-04-16 07:59] LABS: CALCIUM 8.7 mg/dL (8.5-10.1); CREATININE 0.7 mg/dL (0.6-1.0); MAGNESIUM 1.6 mg/dL (1.8-2.4); POTASSIUM 3.2 mmol/L (3.5-5.1)
--- NOTE | 2021-04-16 09:45 | NUR ---
Followup: readmit with recurrent gastroparesis. EGD indicated severe esophagitis. On reglan, pantoprazole, insulin for BG. No wt loss hx, but wt gain about 20 lb since September. BG 235, K and Mg needed replacement today. Pt reports stomach pain, unable to eat much. Breakfast tray left untouched. Only wants broth, crackers, and glucerna for lunch. On D5 fluids. Discussed w/ GI SPECIAL EVENTS FUNDRAISER and will continue to monitor. Low nutrition risk but will followup again on 04/19 for progress.
--- NOTE | 2021-04-16 11:55 | NUR ---
CARE TEAM INDIATED THAT PT HAD BEEN ADVANCED TO CLD THIS DAY. THEY INDICATED THAT SHE ISN'T YET MEDICALLY STABLE TO DC. CM FOLLOWING REGARDING DC PLANNING. IT IS ANTICIAPTED THAT PT WILL BE SAFE TO DC HOME TO SELF CARES ONCE MEDICALLY STABLE.
[2021-04-16 15:13] VITALS: BP 159/84
--- NOTE | 2021-04-16 19:49 | NUR ---
ASSUMED PT CARE AROUND 0700. PT ALERT X ORIENTED X 4. ON ROOM AIR. STAND BY ASST TO BATHROOM. ACCUCHMCKENNA RENTERIA.IV ON LEFT BREAST.N/V NOT CONTROLLED BY ZOFRAN, HAD TO GIVE COMPAZINE FOR VOMITING. RN SPOKE TO PT'S DAUGHTER AND UPDATED ABOUT HER CONDITION.CALL LIGHT WITHIN REACH. WILL CALL APPROPRIATELY. SHIFT REPORT GIVEN TO INSPECTOR PLUMBING.
[2021-04-16 20:00] VITALS: BP 120/93
--- NOTE | 2021-04-17 04:09 | NUR ---
Pt. rested quietly during the night when checked on during frequent rounds. She has not requested anything for pain or nausea. Up to the bathroom with standby assistance.
[2021-04-17 05:02] LABS: HEMATOCRIT 41.7 % (37.0-47.0); HEMOGLOBIN 13.9 gm/dL (12.0-15.0); MCHC 33.2 g/dL (28.0-37.0); MCV 87.5 fL (80.0-100.0); RBC 4.77 mil/uL (4.20-5.00); RDW 13.6 % (10.5-14.5); WBC 7.3 thou/uL (4.0-11.0)
[2021-04-17 05:21] LABS: CALCIUM 8.6 mg/dL (8.5-10.1); CREATININE 0.6 mg/dL (0.6-1.0); MAGNESIUM 2.2 mg/dL (1.8-2.4); POTASSIUM 3.4 mmol/L (3.5-5.1)
[2021-04-17 07:45] VITALS: BP 112/79
--- NOTE | 2021-04-17 11:11 | P ---
[facility] [place] [address] PROCEDURE REPORT Name: BROOKE GARNER Room #: 457-P [facility] IN M.R.#: [id number] Admission: 04/12/21 Attend Phys: Rito Shelby MD Discharge: Date of : 55 Report #: [id number] THIS REPORT FOR: cc: Gume Billy MD, Daniel J. MD McElhinney, Christian C. MD ~ DOC #: [id number] cc: MD Fady Strickland MD DATE OF SERVICE: 04/14/2021 PROCEDURE PERFORMED: Upper endoscopy with biopsies. HISTORY OF PRESENT ILLNESS: The patient is a 65-year-old female with a history of gastroparesis, nausea, vomiting and hematemesis. She has a long history of diabetes. She has been diagnosed recently with pulmonary embolism and was started on Xarelto. She does take Reglan 5 mg q.i.d. for gastroparesis. Last upper endoscopy was over 5 years ago. Her hemoglobin is stable at 14. Plan is for upper endoscopy. DESCRIPTION OF PROCEDURE: The risks and benefits of the procedure were explained to the patient, those risks including but not limited to bleeding, perforation and the risk of sedation. She understood these risks and gave informed consent. Sedation was given using propofol per anesthesia. Next, using a standard Olympus upper endoscope, the scope was placed in the patient's mouth and advanced under direct vision through the esophagus, stomach and into the second portion of the duodenum. The upper esophagus was normal. The mid and distal esophagus, however, showed severe grade D erosive esophagitis. This may be secondary to reflux, but also may be secondary to Rajni. Several biopsies were obtained. There was no active bleeding, but the tissue was friable, likely source of recent upper GI bleed. Upon entering the stomach, a small hiatal hernia was noted. Overall, the gastric mucosa was normal in the fundus, there was a mild gastritis noted in the body. Biopsies obtained to rule out H. pylori. The pylorus was normal and patent. The duodenal bulb, first and second portion were all normal. The scope was then withdrawn and the procedure terminated. The patient tolerated the procedure well. IMPRESSION: 1. Severe grade D erosive esophagitis may be secondary to reflux or Rajni, biopsies obtained. 2. Mild gastritis. 3. Small hiatal hernia. 4. Otherwise, normal upper endoscopy. RECOMMENDATIONS: [address] [address] PROCEDURE REPORT Name: BROOKE GARNER Room #: 457-P [facility] IN .R.#: [id number] Admission: 04/12/21 Attend Phys: Rito Shelby MD Discharge: Date of : 55 Report #: [id number] 1. Await biopsy results. 2. Continue PPI b.i.d. at this time. We will add Carafate liquid as well as treat with Mycelex troches while awaiting biopsy results. We will advance diet as tolerated. Thank you for allowing me to participate in her care. Fady Colón MD CCM/SAT <ELECTRONICALLY SIGNED> By: Fady Colón MD 04/17/21 1111 1533 [id number] Fady Colón MD /nt
[2021-04-17 15:38] VITALS: BP 164/113
[2021-04-17 15:39] VITALS: BP 160/110
[2021-04-17 18:13] LABS: URINE BILIRUBIN NEGATIVE (Negative); URINE BLOOD NEGATIVE (Negative); URINE CLARITY SL CLOUDY; URINE COLOR YELLOW; URINE GLUCOSE-RANDOM* NEGATIVE (Negative); URINE KETONES TRACE (Negative); URINE LEUKOCYTES NEGATIVE (Negative); URINE NITRITE NEGATIVE (Negative); URINE PROTEIN (DIPSTICK) NEGATIVE (Negative)
--- NOTE | 2021-04-17 18:36 | NUR ---
PT ALERT AND ORIENTED TIMES FOUR. BP ELEVATED THIS EVENING AWARE. OTHER VSS. IVF INFUSING PER ORDER. PT C/O PAIN AND NAUSEA PRN MEDICATIONS FOR BOTH GIVEN WITH GOOD RELEIF. PT TOLERATES SOME MEDS BUT STATES WHEN SHE EATS SHE THROWS UP. SOME EMESIS NOTED IN THE TRASH CAN. PT DID WALK AROUND THE UNIT THIS MORNING WITH A STEADY GAIT. FAMILY AT BEDSIDE. WILL CONTINUE TO MONITOR.
[2021-04-17 20:35] VITALS: BP 125/83
--- NOTE | 2021-04-18 03:56 | NUR ---
RECEIVED CARE OF THIS PATIENT AT 1900. PATIENT ALERT AND ORIENTED X4. C/O PAIN AND NAUSEA, MED GIVEN FOR BOTH. UP WITH SBA PER PT REQUEST. IV PATENT WITH FLUIDS INFUSING. ACCUCHECK WAS 216, RECEIVED 10 UNITS LISPRO INSULIN. NO BM FOR A FEW DAYS BUT IS PASSING FLATUS. SLEPT OFF AND ON DURING NIGHT.
[2021-04-18 04:43] LABS: HEMATOCRIT 42.2 % (37.0-47.0); HEMOGLOBIN 13.9 gm/dL (12.0-15.0); MCH 29.1 pg (26.0-34.0); MCHC 32.9 g/dL (28.0-37.0); MCV 88.5 fL (80.0-100.0); RBC 4.77 mil/uL (4.20-5.00); RDW 13.5 % (10.5-14.5); WBC 6.9 thou/uL (4.0-11.0)
[2021-04-18 04:51] LABS: CALCIUM 8.5 mg/dL (8.5-10.1); CREATININE 0.6 mg/dL (0.6-1.0); MAGNESIUM 1.8 mg/dL (1.8-2.4); POTASSIUM 3.5 mmol/L (3.5-5.1)
[2021-04-18 08:11] VITALS: BP 127/89
--- NOTE | 2021-04-18 18:17 | NUR ---
ASSUMED PATIENT CARE AT 1030. A/O X4. PAIN MEDS GIVEN NEEDS. SLOWLY TOWARDS POC GOALS.
[2021-04-18 19:56] VITALS: BP 105/75
--- NOTE | 2021-04-19 06:28 | NUR ---
ASSUME CARE 1900. PT/VITALS STABLE. INTERMITTENT ABDOMINAL PAIIN NOTERED WITH NAUSEA BUT NO VOMITING THROUGH THE SHIFT. PT PASING FLATUS BUT NO BM YET. ASSESSMENT CHARTED. PROGRESSING WELL WITH POC. PLAN IS TO CONTIUE WITH PAIN MANAGEMENT AND NAUSEA MEDICATION. POSSIBLE DISCHARGE WITHIN 1-2 DAYS. NO DISTRESS NOTED THROUGH THE NIGHT. ADEQUATE SLEEP NOTED. WILL CONTINUE TO MONITOR AND FOLLOW WITH POC
[2021-04-19 07:40] VITALS: BP 113/81
--- NOTE | 2021-04-19 08:40 | NUR ---
Followup: continued treatment for gastroparesis. On reglan and scopalamine patch started. Starting to eat better 40-50% meals, still requires IVF. GI indicates possible dc soon.
--- NOTE | 2021-04-19 10:23 | NUR ---
ASSUMED CARE OF PT AT 0700 THIS MORNING. PT C/O ABD PAIN AND N/V. PT WAS SLEEPING DURING REPORT. PT WOKE WHEN MEAL TRAYS WERE PASSES OUT. PT TOOK MORNING MEDS AND REFUSED TO TAKE HYDROCODONE/APAP FOR PAIN SHE STATED IT MADE HER TIRED. PT WANTED IVP FETYNAL ONLY. PT IS A/OX4, ASSESSMENTS NOTED IN CHARTING AND OTHERWISE UNREMARKABLE. IV IN RIGHT AC WITH FLUIDS RUNNING. CALL LIGHT AND OTHER NEEDS ARE PLACED WITHIN REACH. MEDS AND TX GIVEN NEEDED AND SCHEDULED.
[2021-04-19] MEDS ORDERED: CARAFATE 11 GM/10 M1 PO (11:42)
[2021-04-19] MEDS ORDERED: PROTONIX40 M4 PO (11:43)
[2021-04-19 12:42] VITALS: BP 113/81
--- NOTE | 2021-04-19 13:07 | PATH ---
[facility] [place] [address] PATHOLOGY RPT PROCEDURE Name: CARMEN GARNER Room #: 457-P ADM IN M.R.#: [id number] Admission: 04/12/21 Date of : 55 Discharge: Report #: [id number] Path Case #: [id number] [facility] Accession Number: [id number] . 01 Material submitted: . PART A: gastrointestinal site - GASTRIC BX R/O H PYLORI PART B: esophagus - ESOPHAGUS BS R/O RAJNI . 01 Clinical history: . GASTRITIS,ESOPHAGITIS. A. R/O H. PYLORI B. R/O RAJNI . 02 Diagnosis: A. Gastric mucosa, gastric R/O H. pylori, endoscopic biopsy: - Mild chronic inflammation. - Negative for intestinal metaplasia or atrophy. - Negative for Helicobacter pylori (properly controlled immunohistochemical stain performed). . B. Esophagus R/O Rajni, endoscopic biopsy: - Specimen entirely comprised of fibrinopurulent material, consistent with fragments of ulcer. - No intact squamous epithelium/mucosal tissue present. - Negative for malignancy. (IUV:myranda; 04/16/2021) QMS 04/16/2021 1425 Local . 02 Comment: B. Examination shows a specimen entirely comprised of fibrinopurulent material or fragments of an ulcer. Lack of intact surface epithelium limits interpretation. PASD fungal special stain is ordered on block B1 and the results of this will be reported in an addendum to follow. (IUV:myranda; 04/16/2021) . 02 Addendum: . This addendum is issued subsequent to reviewing a properly controlled PASD fungal special stain performed on block B1. It shows no definite intact hyphal elements present within the fibrinopurulent material sample examined. (IUV:pit; 04/19/2021) . Professional services performed by [facility] at [facility], [address] [place] [address] , [place] [address]. Technical services performed by [facility] at [address] [place] [address], [address], [place] [address]. MBR/04/19/2021 Addendum Electronically Signed by Priyanka Conklin MD, [place] [address] PATHOLOGY RPT PROCEDURE Name: CARMEN GARNER Room #: 457-P ADM IN M.R.#: [id number] Admission: 04/12/21 Date of : 55 Discharge: Report #: [id number] Path Case #: [id number] . 02 Electronically signed: . Priyanka Conklin MD, Pathologist NPI- [id number] . 01 Gross description: . A. Received in formalin labeled "Bashir, Carmen, gastric biopsy" are multiple pereira-brown soft tissue fragments measuring in aggregate 0.8 x 0.3 x 0.1 cm. The specimen is submitted entirely in A1. . B. Received in formalin labeled "Bashir, Carmen, esophageal bx" are multiple pereira-brown soft tissue fragments measuring in aggregate 0.4 x 0.4 x 0.1 cm. The specimen is submitted entirely in B1. (CLEOPATRA; 04/15/2021) CLEOPATRA/CLEOPATRA 04/15/20212021 Local . 02 Pathologist provided ICD-10: K29.50 . 02 CPT . 257018, 546199, H77011, 588660 Specimen Comment: A courtesy copy of this report has been sent to [phone] Specimen Comment: Report sent to Performed at: [address], [place] [id number] MD Cl Richey MD Phone: [phone] Performed at: [address] [id number] MD Priyanka Conklin MD Phone: [phone]
--- NOTE | 2021-04-19 14:37 | NUR ---
CARE TEAM INDICATED THAT PT IS MEDICALLY STABLE TO DC HOME THIS DAY. PT IS TO DC HOME TO SELF CARE. NO OTHER CM INTRVENTION INDICATED. CASE CLOSED. PT'S DTR TO PROVIDE TRANSPORT HOME THIS AFTERNOON AROUND 1600.
[2021-04-19 15:34] VITALS: BP 128/83
== END 2021-04-19 16:45 | disposition home or self-care (01) | DRG 392 ==
LOC: ER 11:32 → 4W 18:06 → EROBS 18:06 → 4W 04-13 09:30
PROVIDERS: Internal Medicine; Psychiatry & Neurology Psychiatry; Student in an Organized Health Care Education/Training Program; ADMIT Hospitalist; ATTEND Hospitalist
PROC: 0DB58ZX Excision of Esophagus, Via Natural or Artificial Opening Endoscopic, Diagnostic (ICD-10-PCS; principal; 2021-04-14)
PROC: 0DB68ZX Excision of Stomach, Via Natural or Artificial Opening Endoscopic, Diagnostic (ICD-10-PCS; principal; 2021-04-14)
DX: K29.70 Gastritis, unspecified, without bleeding (principal); E87.2 Acidosis; K90.49 Malabsorption due to intolerance, not elsewhere classified; E11.43 Type 2 diabetes mellitus with diabetic autonomic (poly)neuropathy; I10 Essential (primary) hypertension; F41.9 Anxiety disorder, unspecified; E66.9 Obesity, unspecified; K31.84 Gastroparesis; F32.9 Major depressive disorder, single episode, unspecified; K21.00 Gastro-esophageal reflux disease with esophagitis, without bleeding; E11.42 Type 2 diabetes mellitus with diabetic polyneuropathy; K44.9 Diaphragmatic hernia without obstruction or gangrene; Z20.822 Contact with and (suspected) exposure to COVID-19; Z79.01 Long term (current) use of anticoagulants; Z86.16 Personal history of COVID-19; Z90.710 Acquired absence of both cervix and uterus; Z79.84 Long term (current) use of oral hypoglycemic drugs; Z79.899 Other long term (current) drug therapy; Z88.2 Allergy status to sulfonamides; Z88.8 Allergy status to other drugs, medicaments and biological substances; Z68.33 Body mass index [BMI] 33.0-33.9, adult
CPT/HCPCS: 10040; 62110; 62900; 70005

== ENCOUNTER 2021-05-30 19:19 | Inpatient (IN) | payer OTHER ==
[~2021-05-30] VITALS: Ht 167.6 cm; Wt 87.1 kg
[~2021-05-30 19:19] MED LIST changes: +CARAFATE 11 GM/10 M1 PO; +PROTONIX40 M2 PO; +PROTONIX40 M4 PO; +Transderm-Scop 1MG/7 TRANSDERM
[2021-05-30 19:25] VITALS: BP 151/96
[2021-05-30 19:41] LABS: URINE BILIRUBIN NEGATIVE (Negative); URINE BLOOD NEGATIVE (Negative); URINE CLARITY CLEAR; URINE COLOR YELLOW; URINE GLUCOSE-RANDOM* NEGATIVE (Negative); URINE KETONES 1+ (Negative); URINE LEUKOCYTES-REFLEX NEGATIVE (Negative); URINE NITRITE-REFLEX NEGATIVE (Negative); URINE PROTEIN (DIPSTICK) 2+ (Negative); URINE SPECIFIC GRAVITY >= 1.030 (1.005-1.035); URINE UROBILINOGEN 0.2 E.U./dl (0.2-1.0)
[2021-05-30 19:47] LABS: SQUAMOUS >10 Many /LPF (0-3)
[2021-05-30 19:49] LABS: BACTERIA-REFLEX 1-9 Few /HPF (None Seen); CASTS None Seen /LPF (None Seen); CRYSTALS None Seen /LPF (None Seen); MUCUS 0-3 Light strn/LPF (None Seen); URINE RBC 1-2 Rare /HPF (NONE SEEN); URINE WBC-REFLEX 0-5 Rare /HPF (0-5)
[2021-05-30 21:54] LABS: ABSOLUTE NEUTROPHILS 6.7 thou/uL (1.4-8.2); BASOPHILS 0.7 % (0.0-2.0); EOSINOPHILS 0.1 % (0.0-3.0); HEMATOCRIT 39.8 % (37.0-47.0); HEMOGLOBIN 13.3 gm/dL (12.0-15.0); LYMPHOCYTES 14.1 % (24.0-44.0); MCH 29.2 pg (26.0-34.0); MCHC 33.4 g/dL (28.0-37.0); MCV 87.4 fL (80.0-100.0); MONOCYTES 2.7 % (1.0-8.0); PLATELET COUNT 423 thou/uL (150-400); POLYS 82.4 % (36.0-66.0); RBC 4.55 mil/uL (4.20-5.00); RDW 13.4 % (10.5-14.5); WBC 8.1 thou/uL (4.0-11.0)
[2021-05-30 21:56] LABS: CREATININE 0.7 mg/dL (0.6-1.0); POTASSIUM 3.4 mmol/L (3.5-5.1)
[2021-05-30 22:03] LABS: ALBUMIN 3.3 g/dL (3.4-5.0); TOTAL BILIRUBIN 0.2 mg/dL (0.2-1.0); TOTAL PROTEIN 7.7 g/dL (6.4-8.2)
[2021-05-30] MEDS ORDERED: NYSTATIN100000 UNI SW&SWALLOW (22:19)
[2021-05-30] MEDS ORDERED: AMITRIPTYLINE H25 M2 PO (22:20)
[2021-05-30] MEDS ORDERED: POTASSIUM CHLO10 ME1 PO (22:20)
[2021-05-30] MEDS ORDERED: ATORVASTATIN CA80 MG PO (22:29)
[2021-05-30] MEDS ORDERED: XARELTO20 MG PO (22:37)
[2021-05-31 10:00] VITALS: BP 135/84
--- NOTE | 2021-05-31 15:14 | NUR ---
ATE 75% OF MEAL
[2021-05-31 20:42] VITALS: BP 150/93
== END 2021-05-31 20:54 | disposition home or self-care (01) | DRG 74 ==
LOC: ER 19:19 → EROBS 22:00
PROVIDERS: Physician Assistant; ADMIT Internal Medicine; ATTEND Internal Medicine
DX: E11.43 Type 2 diabetes mellitus with diabetic autonomic (poly)neuropathy (principal); B37.0 Candidal stomatitis; F41.9 Anxiety disorder, unspecified; F32.9 Major depressive disorder, single episode, unspecified; I10 Essential (primary) hypertension; K31.84 Gastroparesis; E11.42 Type 2 diabetes mellitus with diabetic polyneuropathy; G89.29 Other chronic pain; Z90.710 Acquired absence of both cervix and uterus; Z79.01 Long term (current) use of anticoagulants; Z86.16 Personal history of COVID-19; Z79.899 Other long term (current) drug therapy; Z88.2 Allergy status to sulfonamides; Z88.8 Allergy status to other drugs, medicaments and biological substances; Z88.7 Allergy status to serum and vaccine

== ENCOUNTER 2021-06-02 23:20 | Emergency (ER) | payer OTHER ==
[~2021-06-02] VITALS: Ht 167.6 cm; Wt 87.1 kg
[~2021-06-02 23:20] MED LIST changes: +AMITRIPTYLINE H25 M2 PO; +ATORVASTATIN CA80 MG PO; +NYSTATIN100000 UNI SW&SWALLOW; +POTASSIUM CHLO10 ME1 PO
[2021-06-02 23:35] VITALS: BP 114/68
[2021-06-03] MEDS ORDERED: NORCO5 PO (00:22)
== END 2021-06-03 02:16 | disposition home or self-care (01) ==
LOC: ER 23:20
DX: S92.351A Displaced fracture of fifth metatarsal bone, right foot, initial encounter for closed fracture (principal); E11.9 Type 2 diabetes mellitus without complications; I10 Essential (primary) hypertension; Z86.711 Personal history of pulmonary embolism; Z79.01 Long term (current) use of anticoagulants; Z88.2 Allergy status to sulfonamides; Z88.6 Allergy status to analgesic agent; X50.1XXA Overexertion from prolonged static or awkward postures, initial encounter; Y93.89 Activity, other specified; Y92.89 Other specified places as the place of occurrence of the external cause; Y99.8 Other external cause status

== ENCOUNTER 2021-06-08 09:10 | Inpatient (IN) | payer OTHER ==
[~2021-06-08] VITALS: Ht 167.6 cm; Wt 85.7 kg
--- NOTE | ~2021-06-08 | O ---
[facility] [place] [address] [place] [address] OPERATIVE REPORT Name: BROOKE GARNER Room #: 442-P ADM IN M.R.#: [id number] Admission: 06/08/21 Attend Phys: Luis Kasper MD Discharge: Date of : 55 Report #: [id number] THIS REPORT FOR: cc: Aries Billy MD, Christopher B. MD Joseph, Sigi P. MD ~ DATE OF SERVICE: 06/16/2021 PREOPERATIVE DIAGNOSIS: Chronic cholecystitis. POSTOPERATIVE DIAGNOSIS: Chronic cholecystitis. OPERATIVE PROCEDURE DONE: Laparoscopic cholecystectomy. OPERATIVE SURGEON: Ziyad Jaquez MD INDICATIONS FOR THE PROCEDURE: The patient is a 65-year-old female who presented with complaints of frequent episodes of upper abdominal discomfort and nausea and vomiting. Initial evaluation showed features of chronic cholecystitis/biliary dyskinesia with ejection fraction of 32%. The patient was also noted to have features of gastroparesis and possible SMA syndrome. The patient was advised laparoscopic cholecystectomy. Initially, the patient showed understanding and agreed to proceed. PROCEDURE IN DETAIL: After explaining to the patient in detail and informed consent was obtained, the patient was identified in the preoperative holding area, the patient was transferred to the operating room and was placed in supine position. Sequential compression devices were placed for DVT prophylaxis. Preoperative antibiotics were given. After induction of anesthesia, the abdomen was prepped and draped in a sterile fashion. Through a right upper quadrant 1 cm incision and using Optiview technique, peritoneal cavity was entered and pneumoperitoneum was created. Thereafter, under direct vision, another 5 mm trocar was placed through a supraumbilical incision, another 5 mm trocar was placed in the epigastrium and one in the right lateral subcostal region. On initial inspection, the gallbladder appeared normal. The gallbladder was retracted and the peritoneal reflection along the neck of the gallbladder was gently dissected off. The cystic duct was identified and was isolated from the surrounding structures. Cystic artery was identified and was isolated from the surrounding structures. Cystic duct was double clipped proximally and single clip applied distally and was then divided. Cystic artery also was then divided in a similar fashion. The gallbladder was gently dissected off the liver bed using hook electrocautery. Absolute hemostasis was achieved. Thorough saline irrigation was given. The gallbladder was retrieved using an EndoCatch through the lateral most incision. The incisions were then closed with 4-0 Monocryl. The lateral incision was closed with 0 Vicryl for the fascia. Skin was closed with 4-0 Monocryl for all the incisions. Dermabond was applied. The patient [address] [address] OPERATIVE REPORT Name: BROOKE GARNER Room #: 442-P [facility] IN M.R.#: [id number] Admission: 06/08/21 Attend Phys: Luis Kasper MD Discharge: Date of : 55 Report #: [id number] was stable at the end of the procedure. The patient was awoken from anesthesia and was transferred to the recovery room in stable condition. ESTIMATED BLOOD LOSS: Minimal. CONDITION: The patient is stable. FLUIDS GIVEN: Per anesthesia notes. SPECIMEN SENT: Gallbladder. COMPLICATIONS: None. ANESTHESIA: General anesthesia. By: 1244 [id number] Ziyad Jaquez MD /nt
[~2021-06-08 09:10] MED LIST changes: +NORCO5 PO
[2021-06-08 09:11] VITALS: BP 120/87
[2021-06-08 09:52] LABS: ANION GAP 13 mmol/L (7-16); BUN 5 mg/dL (7-18); CALCIUM 10.1 mg/dL (8.5-10.1); CHLORIDE 102 mmol/L (98-107); CO2 25 mmol/L (21-32); CREATININE 0.9 mg/dL (0.6-1.0); GLUCOSE 262 mg/dL (74-106); POTASSIUM 3.7 mmol/L (3.5-5.1); SODIUM 140 mmol/L (136-145)
[2021-06-08 09:59] LABS: ALBUMIN 4.3 g/dL (3.4-5.0); LIPASE 85 U/L (73-393); SGOT 18 U/L (15-37); SGPT 17 U/L (14-59); TOTAL BILIRUBIN 0.7 mg/dL (0.2-1.0); TOTAL PROTEIN 9.7 g/dL (6.4-8.2); TROPONIN-I <0.06 ng/mL (<0.06)
--- NOTE | 2021-06-08 10:32 | EKG ---
[place] [address] [place] [address] ELECTROCARDIOGRAM REPORT Name: BROOKE GARNER [id number] Admission: 06/08/21 Attend Phys: Discharge: Date of : 55 Report #: [id number] [facility] ED Test Date: 2021-06-08 Test Time: 10:07:52 Pat Name: BROOKE GARNER Department: Room: Gender: F Vegetable Scullion: dulce : 1955 Requested By: Juan M Lara Order Number: [id number] MD: Kurt Garcia Measurements Intervals Anthony Rate: 98 P: 17 NE: 156 QRS: -42 QRSD: 100 T: 42 QT: 350 QTc: 447 Interpretive Statements Sinus tachycardia Multiform ventricular premature complexes Probable left atrial enlargement Abnormal R-wave progression, late transition Compared to ECG 03/26/2021 09:32:04 Ventricular premature complex(es) now present Sinus rhythm no longer present Electronically Signed On 06-08-2021 10:32:25 CDT by Kurt Garcia [email or web address] <ELECTRONICALLY SIGNED> By: Kurt Garcia MD, [facility] 06/08/21 1032 1007 1007 Kurt Garcia MD, FACC /EPI
[2021-06-08 12:53] VITALS: BP 169/116
[2021-06-08 13:11] VITALS: BP 182/122
[2021-06-08 13:13] LABS: URINE BILIRUBIN NEGATIVE (Negative); URINE BLOOD NEGATIVE (Negative); URINE CLARITY CLEAR; URINE COLOR YELLOW; URINE GLUCOSE-RANDOM* 3+ (Negative); URINE KETONES 2+ (Negative); URINE LEUKOCYTES-REFLEX NEGATIVE (Negative); URINE NITRITE-REFLEX NEGATIVE (Negative); URINE PROTEIN (DIPSTICK) NEGATIVE (Negative); URINE UROBILINOGEN 0.2 E.U./dl (0.2-1.0)
[2021-06-08 14:09] VITALS: BP 192/125
[2021-06-08 14:50] VITALS: BP 121/51
--- NOTE | 2021-06-08 16:27 | NUR ---
PATIENT VOMITING BILE EMESIS AT 1400. AT 1620 PATIENT VOMITING COFFEE GROUND EMESIS, DR. MYERS AND DR. RIZZO BOTH NOTIFIED. LUCIA IS ORDERING COMPAZINE AND COULT STOOL. DR. RIZZO NOT CONCERNED AT THIS TIME FROM PREVIOUS TEST, CHECKING LABS TOMORROW.
[2021-06-08 21:17] VITALS: BP 159/95
--- NOTE | 2021-06-09 00:37 | NUR ---
ASSESSED AT START OF SHIFT. PT C/O NAUSEA, GROUND COFFEE EMESIS NOTED. IV COMPAZINE AND SCHEDULED REGLAN GIVEN. PT HAD MULTIPLE EMESIS THIS SHIFGT. UP WITH SBA TO THE BATHROOM. FALL PREC IN PLACE AND CALL LIGHT AT REACH. WILL CONT TO MONITOR.
[2021-06-09 03:10] VITALS: BP 116/84
[2021-06-09 05:47] LABS: BASOPHILS 0.6 % (0.0-2.0); HEMATOCRIT 41.2 % (37.0-47.0); LYMPHOCYTES 15.9 % (24.0-44.0); MCH 29.6 pg (26.0-34.0); MCHC 34.1 g/dL (28.0-37.0); MONOCYTES 6.6 % (1.0-8.0); PLATELET COUNT 441 thou/uL (150-400); POLYS 76.9 % (36.0-66.0); RBC 4.74 mil/uL (4.20-5.00); RDW 13.5 % (10.5-14.5); WBC 10.5 thou/uL (4.0-11.0)
[2021-06-09 06:16] LABS: CALCIUM 9.1 mg/dL (8.5-10.1); CREATININE 0.7 mg/dL (0.6-1.0); MAGNESIUM 1.9 mg/dL (1.8-2.4)
[2021-06-09 06:34] LABS: POTASSIUM 2.8 mmol/L (3.5-5.1)
[2021-06-09 08:39] VITALS: BP 117/87
[2021-06-09 17:00] VITALS: BP 151/110
--- NOTE | 2021-06-09 18:23 | NUR ---
PATIENT ALERT AND ORINTED X4, UP WITH SBA, ON ROOM AIR, VITAL SIGNS STABLE, AND AFBRILE. CALL LIGHT WITH IN REACH, WILL CONTINUE TO MONTIOR.
[2021-06-09 19:02] VITALS: BP 145/93
--- NOTE | 2021-06-10 01:12 | NUR ---
ASSESSED AT START OF SHIFT, PT RESTING IN BED. IV INTACT AND FLUIDS INFUSING. C/O OF NAUSEA MEDS GIVEN SEE EMAR. DR SON STOPPED BY TO SEE PT.ATIVAN GIROSA PER ORDER. NO SIGN OF EMESIS TONIGHT. PT SLEPT THROUGH THE NIGHT. UP WITH SBA TO THE BATHROOM. FALL PREC IN PLACE AND CALL LIGHT AT REACH WILL CONT TO MONITOR.
[2021-06-10 03:30] LABS: HEMATOCRIT 38.1 % (37.0-47.0); HEMOGLOBIN 12.8 gm/dL (12.0-15.0); MCH 29.4 pg (26.0-34.0); MCHC 33.7 g/dL (28.0-37.0); MCV 87.3 fL (80.0-100.0); RBC 4.37 mil/uL (4.20-5.00); RDW 13.5 % (10.5-14.5); WBC 9.1 thou/uL (4.0-11.0)
[2021-06-10 05:23] VITALS: BP 109/75
[2021-06-10 05:45] LABS: CREATININE 0.7 mg/dL (0.6-1.0); MAGNESIUM 1.8 mg/dL (1.8-2.4)
[2021-06-10 05:57] LABS: POTASSIUM 2.9 mmol/L (3.5-5.1)
[2021-06-10 07:11] VITALS: BP 146/99
--- NOTE | 2021-06-10 09:45 | NUR ---
Assumed care of pt at 0700. Pt a&ox4. IVF infusing. Pt curently in nuclear med for pipida scan. IV potassium and IV magnesium infusing. Diet advanced to full liquid. Call light within reach. Fall precautions in place. Will continue to monitor.
[2021-06-10] MEDS ORDERED: GABAPENTIN600 M1 PO (10:51)
--- NOTE | 2021-06-10 13:31 | NUR ---
CM REVIEWED CHART AND SPOKE WITH BEDSIDE RN. PT IS FULLY INDEPENDENT WITH ADLS AND AMBULATION. PT WORKS [employer]. PLANS ARE FOR PATIENT TO HAVE PIPIDA SCAN AND POSSIBLE DISCHARGE IN 1-2 DAYS. PT SHOULD HAVE NO NEEDS FROM CM. CM WILL COTNINUE TO FOLLOW.
[2021-06-10 16:18] VITALS: BP 182/122
[2021-06-10 17:30] VITALS: BP 155/68
[2021-06-10 18:38] LABS: HEMATOCRIT 45.4 % (37.0-47.0); MCH 29.3 pg (26.0-34.0); MCHC 33.6 g/dL (28.0-37.0); MCV 87.3 fL (80.0-100.0); RBC 5.19 mil/uL (4.20-5.00); RDW 13.6 % (10.5-14.5); WBC 9.1 thou/uL (4.0-11.0)
[2021-06-10 18:40] LABS: HEMOGLOBIN 15.2 gm/dL (12.0-15.0)
[2021-06-10 19:54] VITALS: BP 103/66
--- NOTE | 2021-06-11 01:35 | NUR ---
ASSUMED PT CATER AT 1900.PT'S DTR AT BEDSIDE AT SHIFT CHANGE.PER REPORT,PT WAS HAVING N/V.PT WENT DOWN R CT SCAN,PAIN MED GIVEN BEFORE SHE LEFT.NO C/O N/V NOTED SINCE PT CAME BACK FROM CT.PT ABLE TO EAT YOGURT AND PO FLUIDS,ABLE TO KEEP THEM DOWN.UP WITH SBA TO THE BR.PT'S DTR CALLED,UPDATE GIVEN.CAM BOOT ON HER R LEG.NO COMPLAINTS NOTED SO FAR FROM PT.CALL LIGHT WITHIN REACH.
[2021-06-11 03:54] VITALS: BP 106/68
[2021-06-11 05:43] LABS: HEMATOCRIT 37.9 % (37.0-47.0); MCH 29.3 pg (26.0-34.0); MCHC 33.4 g/dL (28.0-37.0); MCV 87.7 fL (80.0-100.0); RBC 4.32 mil/uL (4.20-5.00); RDW 13.2 % (10.5-14.5); WBC 7.7 thou/uL (4.0-11.0)
[2021-06-11 06:03] LABS: HEMOGLOBIN 12.7 gm/dL (12.0-15.0)
[2021-06-11 06:29] LABS: CALCIUM 8.1 mg/dL (8.5-10.1); CREATININE 0.6 mg/dL (0.6-1.0); MAGNESIUM 2.2 mg/dL (1.8-2.4); POTASSIUM 3.5 mmol/L (3.5-5.1)
[2021-06-11 07:20] VITALS: BP 122/81
--- NOTE | 2021-06-11 10:39 | NUR ---
Assumed care of pt at 0700. Pt a&ox4. No nausea or vomitting this am. Prn pain meds administered per pt request. IVF infusing. Awaiting on surgeon to see patient. Call light within reach. Will continue to monitor.
[2021-06-11 15:50] VITALS: BP 138/98
[2021-06-11 20:08] VITALS: BP 141/90
--- NOTE | 2021-06-12 00:42 | NUR ---
PT WAS OBSERVED SLEEPING ON HER BED AT SHIFT CHANGE.PT COMPLAINED THAT HER IV WAS LEAKING WHEN SHE WOKE UP,IT WAS DISCONTINUED.A NEW IV PUT ON HER R HAND. PT'S DTR CALLED WITH CONCERN OF HER IV,SHE WAS UPDATED THAT A NEW IV IS BEING PLACED AT THE TIME OF HER CALL.PT C/O PAIN,MED GIVEN PER ORDER.LATER, PT CALLED AGAIN REQUESTING FOR HER PAIN MED,SHE WAS INFORMED THAT SHE ALREADY GOT THE MED, SHE THEN ASKED FOR HER ANXIETY MED WHICH WAS GIVEN ABOUT MN.AT APPROX 0045, PT CALLED AGAIN ASKING TO SPEAK WITH HER NURSE.ON GETTING TO PT'S ROOM,PT WAS OBSERVED TO BE CONFUSED. SHE ASKED FOR HER ANXIETY MED AGAIN,PT WAS INFORMED THAT SHE ALREADY HAD THE MEDICATION.PT WAS OBSERVED TO BE DRIFTING OFF TO SLEEP SHE WAS TALKING.SHE THEN ASKED FOR HER PAIN MED AGAIN.PT WAS INFORMED THAT THAT SHE ALREADY GOT THAT MED.SHE THEN ASKED THE NURSE WHEN SHE WILL BE ABLE TO GET ANOTHER DOSE.NURSE ASKED PT IF SHE WAS IN PAIN,PT STATED "NOT REALLY".PT WAS ENCOURAGED TO GET SOME SLEEP AND NOT FOCUS ON THE MEDICATION.CALL LIGHT WITHIN REACH.
[2021-06-12 05:54] LABS: HEMATOCRIT 36.7 % (37.0-47.0); HEMOGLOBIN 12.2 gm/dL (12.0-15.0); MCH 29.2 pg (26.0-34.0); MCHC 33.3 g/dL (28.0-37.0); MCV 87.6 fL (80.0-100.0); RBC 4.19 mil/uL (4.20-5.00); RDW 13.4 % (10.5-14.5); WBC 5.9 thou/uL (4.0-11.0)
[2021-06-12 06:03] LABS: CREATININE 0.7 mg/dL (0.6-1.0); MAGNESIUM 1.9 mg/dL (1.8-2.4); POTASSIUM 3.7 mmol/L (3.5-5.1)
[2021-06-12 07:30] VITALS: BP 144/98
--- NOTE | 2021-06-12 09:51 | NUR ---
Assumed care of pt at 0700. Pt a&ox4. Pain controlled. IVF infusing. Talked to pt's daughter and updated on patient's conditions. Call light within reach. Will continue to monitor.
[2021-06-12 15:58] VITALS: BP 148/103
[2021-06-12 20:16] VITALS: BP 130/87
--- NOTE | 2021-06-13 01:07 | NUR ---
PT NOT COMPLIANT WITH FALL PRECAUTIONS.PT CONSTANTLY GETS OUT OF BED WITHOUT ASSIST TO THE BSC.PT EDUCATED ON THE IMPORTANCE OF CALLING FOR ASSITANCE.PT C/O PAIN TO HER ABD,MANAGED WITH MED.PT ALERT BUT SOMEHOW CONFUSED.PT RESTING ON HER BED AT THIS TIME.HS SNACKPROVIDED PER PT'S REQUEST.PT CONT ON IVF.CAM BOOT TO HER R LEG.CALL LIGHT WITHIN REACH.
--- NOTE | 2021-06-13 12:19 | NUR ---
ASSUMED PT CARE THIS AM. PT IS AWAKE AND SITTING ON THE CHAIR. PT HAS IV SITE ON R HAND RUNNNING 20 KCL @ 100ML/HR. PT IS ON ROOM AIR. PT C/O OF PAIN AND GIVEN PAIN MEDICATION PER PT REQUEST. PT TOLERATED DIET AND MEDICATION WELL. NO C/O OF NAUSEA AND VOMITING. PT IS ACCUCHECK ACHS. LAST BM WAS YESTERDAY. PT HAS ORTHO BOOT ON R FOOT. WILL CONTINUE TO MONITOR PT. FOLLOW POC.
[2021-06-13 15:54] VITALS: BP 147/107
[2021-06-13 19:31] VITALS: BP 160/102
--- NOTE | 2021-06-14 01:53 | NUR ---
ASSESSED AT START OF SHIFT. PT RESTING IN BED C/O PAIN IN ABD. FENTANLYN GIVEN BY DAY RN. PO EVENING MEDS GIVEN AND PT RAHAT IT WELL. IV ON RT HAND INFILTRATED WITH EDEMA NOTED. MULTIPLE ATTEMPT TO GET IV FROM THIS NURSE AND OTHER RN UNSUCESSFUL. HOUSE SUP AND ER NOTIFIED WILL CONT TO FF UP. PT A HARD STICK. UPWITH SBA TO THE BATHROOM. NPO AT MIDNIGHT FOR NUCLEAR MEDICINE TEST. FALL PREC IN PLACE AND CALL LIGHT AT REACH WILL CONT TO MONITOR.
[2021-06-14 04:59] VITALS: BP 119/89
[2021-06-14 07:48] VITALS: BP 97/79
--- NOTE | 2021-06-14 12:58 | NUR ---
ON-GOING ASSESSMENT: CM REVIEWED CHART. PT IS HAVING GASTRIC EMPTYING STUDY TODAY. CM WILL CONTINUE TO FOLLOW TO ASSIST NEECDED.
--- NOTE | 2021-06-14 15:01 | NUR ---
ASSUMED PT CARE THIS AM. PT A&OX4, ABLE TO MAKE NEEDS KNOWN. PATIENT REPORTED NO PAIN THIS AM, WENT FOR GASTRIC EMPTYING TEST AND UPON RETURN TO ROOM, REPORTED PAIN AND MEDICATION GIVEN PER EMAR. IV TEAM STARTED NEW IV TO LEFT FOREARM. PATIENT REMAINS CONTINENT, UP TO BEDSIDE COMMODE WITH ASSIST. REPORTING NO NUMBNESS. FALL PRECAUTIONS ARE IN PLACE, CALL LIGHT WITHIN REACH.
[2021-06-14 19:41] VITALS: BP 135/91
--- NOTE | 2021-06-15 03:09 | NUR ---
PT WAS NOT IN A HAPPY MOOD AT SHIFT CHANGE BUT WAS BETTER THE SHIFT PROGRESSED.PT C/O ABD PAIN,MANAGED WITH MED.PT UP WITH SBA TO THE BSC.PT NPO AT THIS TIME FOR A PROCEDURE IN THE AM.PT CONT ON IVF.PT SLEEPING AT THIS TIME.CALL LIGHT WITHIN REACH.
[2021-06-15 04:29] VITALS: BP 109/74
[2021-06-15 05:53] LABS: HEMATOCRIT 39.5 % (37.0-47.0); HEMOGLOBIN 13.3 gm/dL (12.0-15.0); MCH 29.7 pg (26.0-34.0); MCHC 33.7 g/dL (28.0-37.0); MCV 87.9 fL (80.0-100.0); RBC 4.49 mil/uL (4.20-5.00); RDW 13.7 % (10.5-14.5); WBC 6.1 thou/uL (4.0-11.0)
[2021-06-15 06:33] LABS: CALCIUM 8.5 mg/dL (8.5-10.1); CREATININE 0.7 mg/dL (0.6-1.0); POTASSIUM 3.8 mmol/L (3.5-5.1)
[2021-06-15 09:02] VITALS: BP 114/71
--- NOTE | 2021-06-15 09:58 | NUR ---
ASSUMED PT CARE THIS AM. PT A&OX4, ABLE TO MAKE NEEDS KNOWN. IV PATENT, FLUIDS INFUSING. PATIENT REPORTING ABDOMINAL PAIN THAT RESOLVES WITH MEDICATION GIVEN PER EMAR. RIGHT FOOT HAS A BOOT ON. PATIENT REMAINS CONTINENT, USING BEDSIDE COMMODE WITH ASSIST. PATIENT IS ON ROOM AIR. FALL PRECAUTIONS ARE IN PLACE, CALL LIGHT WITHIN REACH.
--- NOTE | 2021-06-15 13:30 | NUR ---
CM REVIEWED CHART AND SPOKE WITH PATIENT. PT REPORTS THAT SHE IS CURRENTLY LIVING AT HER DAUGHTERS STATING SHE RECENTLY HAD A FOOT FX AND NORMALLY LIVES IN A SECOND FLOOR APT SO HAD BEEN STAYING AT HER DAUGHTERS TO AVOID STEPS. PT REPORTS THAT SHE IS GOING TO BE MOVING INTO A FIRST FLOOR APT LATER THIS MONTH BUT WILL BE STAYING WITH HER DAUGHTER UNTIL HER FOOT HEALS. PT REPORTS THAT SHE HAS CRUTCHES AND A KNEE SCOOTER AT HOME BUT IS NORMALLY INDEPENDENT. PT REQUESTING THE CONTACT NUMBER TO MEDICARE. CM PROVIDED THIS TO PATIENT WELL THE MEDICARE[employer] WEBSITE. PT REPORTS SHE RECENTLY APPLIED FOR SS AND DISABILITY AND WANTED SOME FOLLOW UP. CM NOTIFIED [employer] TO PLEASE FOLLOW UP WITH PATIENT. PT IS TO HAVE UPPER GI SERIES TODAY AND PLANS FOR LAP TRINA TOMORROW. PT DOES NOT ANTICIPATE HAVING ANY NEEDS FROM CM. CM WILL CONTINUE TO FOLLOW TO ASSIST NEEDED.
[2021-06-15 21:15] VITALS: BP 135/93
--- NOTE | 2021-06-16 04:17 | NUR ---
PT DENIED N/V SO FAR.PAIN MED GIVEN PER PT'S REQUEST FOR ABD PAIN.PT IN A VERY GOOD MOOD AT START OF SHIFT.PT NPO AT THIS TIME FOR SX LATER TODAY.PT UP WITH SBA TO THE BSC.CAM BOOT TO HER R LEG.PT CONT ON IVF.PT MORE ALERT ,NO CONFUSION/FORGETFULNESS NOTED.PT RESTING ON HER BED AT THIS TIME.CALL LIGHT WITHIN REACH.
[2021-06-16 05:55] VITALS: BP 128/88
[2021-06-16 06:18] LABS: HEMATOCRIT 36.7 % (37.0-47.0); HEMOGLOBIN 12.1 gm/dL (12.0-15.0); MCH 29.1 pg (26.0-34.0); MCHC 32.9 g/dL (28.0-37.0); MCV 88.3 fL (80.0-100.0); RBC 4.16 mil/uL (4.20-5.00); RDW 13.3 % (10.5-14.5); WBC 5.7 thou/uL (4.0-11.0)
[2021-06-16 06:35] LABS: CALCIUM 8.1 mg/dL (8.5-10.1); CREATININE 0.6 mg/dL (0.6-1.0); POTASSIUM 3.7 mmol/L (3.5-5.1)
--- NOTE | 2021-06-16 12:01 | NUR ---
ASSUMED PT CARE THIS AM. PT HAS IV SITE ON L FA. PT HAS BEEN NPO SINCE MIDNIGHT. PT IS ACCUCHECK ACHS. PT C/O OF PAIN AND GIVEN PAIN MEDICATION PER PT REQUEST. PT IS ON ROOM AIR AND UP AD JULISSA. AWAITING FOR SURGERY TODAY. WILL CONTINUE TO MONITOR PT. FOLLOW POC.
--- NOTE | 2021-06-16 13:13 | NUR ---
ON-GOING ASSESSMENT: CM REVIEWED CHART. PT IS TO HAVE LAP TRINA TODAY AND POSSIBLE PLANS TO DISCHARGE SOON. CM RECEIVED CALL FROM PATIENTS DAUGHTER MORA AND PT GAVE APPROVAL FOR CM TO TALK TO HER. DAUGHTER REQUEST THAT PT HAVE THERAPY WHILE HOSPITALIZED SO SHE IS STRONG WHEN SHE IS DISCHARGED SHE WILL BE STAYING WITH DAUGHTER. PHYSICAL THERAPY WAS ORDERED. CM WILL CONTINUE TO FOLLOW TO ASSIST NEEDED.
[2021-06-16 16:01] VITALS: BP 135/90
[2021-06-16 19:57] VITALS: BP 144/87
[2021-06-17 04:01] VITALS: BP 147/114
--- NOTE | 2021-06-17 04:40 | NUR ---
PT HAD THREE EPISODES OF N/V SO FAR THIS SHIFT,MANAGED WITH MED.NEW ORDER NOTED FOR TRAMADOL FOR BREAKTHROUGH PAIN.FOUR LAP SITES NOTED,COVERED WITH DERMABOND.PT CONT ON IVF.PT UP WITH SBA TO THE BSC.PT'S DTR UPDATED ON HER STATUS WHEN SHE CALLED.PT ABLE TO MAKE HER NEEDS KNOWN.CALL LIGHT WITHIN REACH.
[2021-06-17 07:13] VITALS: BP 180/113
[2021-06-17 15:54] VITALS: BP 136/85
--- NOTE | 2021-06-17 17:07 | PATH ---
[facility] [address] [place] [address] PATHOLOGY RPT PROCEDURE Name: BROOKE GARNER Room #: 442-P [facility] IN M.R.#: [id number] Admission: 06/08/21 Date of : 55 Discharge: Report #: [id number] Path Case #: [id number] [facility] Accession Number: [id number] . 01 Material submitted: . gallbladder - GALLBLADDER . 01 Clinical history: . LAPAROSCOPIC CHOLECYSTECTOMY CHOLELITHIASIS/GASTROPERESIS/NAUSEA / VOMITING/CHRONIC ABD PAIN . 02 Diagnosis: Gallbladder, cholecystectomy: - Mild chronic cholecystitis. (IUV/db; 06/17/2021) LBQ 06/17/2021 1447 Local . 02 Electronically signed: . Priyanka Conklin MD, Pathologist NPI- [id number] . 01 Gross description: . Fixative: Formalin Labeled: Gallbladder Specimen received: Intact gallbladder Dimensions: 9.0 x 2.6 x 2.5 cm Serosa: Light pereira to light leonardo Lymph node: None identified Mucosa: Velvety and bile-stained to dark orange Average wall thickness: 0.1 cm Calculi: None identified Abnormalities: None identified . A1- Draughtsman body, fundus, and the cystic duct margin. ([facility]; 06/16/2021) [facility] 06/16/2021 1704 Local . 02 Pathologist provided ICD-10: K81.1 . 02 CPT . 949196 Specimen Comment: A courtesy copy of this report has been sent to [phone] Specimen Comment: [phone], Specimen Comment: Report sent to , DR CLIFFORD / DR MYERS Performed at: [address] [address] PATHOLOGY RPT PROCEDURE Name: BROOKE GARNER Room #: 442-P [facility] IN ..#: [id number] Admission: 06/08/21 Date of : 55 Discharge: Report #: [id number] Path Case #: [id number] [address] [id number] MD Cl Richey MD Phone: [phone] Performed at: [address] [id number] MD Priyanka Conklin MD Phone: [phone]
--- NOTE | 2021-06-17 18:26 | NUR ---
ASSUMED PT CARE THIS AM. PT HAS IV ON L FA. PT HAS BEEN CRYING AND C/O OF PAIN THIS AM AND NOTED HIGH BLOOD PRESSURE. NIGHT NURSE GIVEN PAIN MEDICATION THIS AM. RECHECK BP. GIVEN PO PAIN MEDICATION PER DR ORDERED. PT STATED THAT DR WILL CHANGE FREQUENCY OF FENTANYL IV PUSH TO Q4H INSTEAD Q6H. INFORMED PT THAT DR NEVER MENTIONED ABOUT CHANGING TO Q4H. NURSE IDENTIFICATION AND RECORDS COMMANDER EXPLAINED TO PT THAT NEED TO WEAN TO BE ABLE TO LEAVE. INFORMED DR THAT PT PAIN IS CONTROLLED WITH PO PAIN MEDS AND PT WANTS TO STAY UNTIL HUI MORNING. POSSIBLE DC TOMORROW MORNING AND DR IS AWARE. PT DAUGHTER HAS BEEN COMPLAINING THIS AFTERNOON. NURSE IDENTIFICATION AND RECORDS COMMANDER IS AWARE. ORDERED CREAM OF CHICKEN DUE TO PT AND PT DAUGHTER HAS BEEN COMPLAINING THAT DIETARY DIDN'T SERVE WHAT PT ORDERED. WILL ENDORSE TO NIGHT NURSE. WILL CONTINUE TO MONITOR PT. FOLLOW POC.
[2021-06-17 20:06] VITALS: BP 147/92
--- NOTE | 2021-06-18 02:24 | NUR ---
PT IS A/O X4 AND IS UP WITH SBA TO THE BSC. ROOM AIR. C/O PAIN. PRN PAIN MEDICATION GIVEN DIRECTED. MEDICATIONS GIVEN PER MAR. PT IS PLEASANT AND COOPERATIVE WITH ALL CARES. UP X1 WITH ASSISTANCE. ORTHO BOOT REMAINS IN PLACE DIRECTED. 4 LAP SITES TO ABDOMEN REMAIN C/D/I. PT USES PILLOW TO BRACE HERSELF WITH REPOSITIONING AND CAUGHING INSTRUCTED. INCENTIVE SPIROMETRY USED OFTEN WITH NURSES ENCOURAGEMENT. PT STATES SHE IS HAPPY TO BE FEELING BETTER AND HAPPY TO BE GOING HOME TOMORROW. HAS BEEN LYING IN HER ROOM MOST OF THIS NOC WITH EYES CLOSED APPEARING TO BE RESTING COMFORTABLY. FALL PRECAUTIONS IMPLEMENTED, CALL LIGHT IS WITHIN REACH.
[2021-06-18 07:40] VITALS: BP 127/80
[2021-06-18] MEDS ORDERED: HYDROCODON-ACE1 EAC7 PO (09:21)
--- NOTE | 2021-06-18 09:50 | NUR ---
PATIENT ALERT&O X4. PATIENT IS PLEASANT AND IN A GOOD MOOD. VERY COOPERATIVE. NO COMPLAINTS OF PAIN. BOOT IS STILL IN PLACE ON RIGHT FOOT. UP IN CHAIR WITH 1 ASSIST. PATIENT WILL DISCHARGE HOME TODAY WITH DAUGHTER.
[2021-06-18 10:09] VITALS: BP 127/80
[2021-06-18 11:29] VITALS: BP 127/80
--- NOTE | 2021-06-18 11:33 | NUR ---
PATIENT SON IN LAW HERE TO SUGAR LABORATORY ASSISTANT PATIENT. DISCHARGE INSTRUCTIONS GIVEN. TRANSPORTED TO FRONT DOOR BY WHEELCHAIR. ALL BELONGINGS SENT. PATIENT LEFT AT 1105.
--- NOTE | 2021-06-18 12:43 | NUR ---
ON-GOING ASSESSMENT: CM REVIEWED CHART. PT HAD ORDERS TO DISCHARGE HOME THIS DAY WITH NO NEEDS.
== END 2021-06-18 11:15 | disposition home or self-care (01) | DRG 418 ==
LOC: ER 09:10 → EROBS 12:46 → 4S 12:46
PROVIDERS: Emergency Medicine; Hospitalist; Internal Medicine Gastroenterology; ADMIT Internal Medicine; ATTEND Internal Medicine
PROC: 0FT44ZZ Resection of Gallbladder, Percutaneous Endoscopic Approach (ICD-10-PCS; principal; 2021-06-16)
DX: K81.1 Chronic cholecystitis (principal); K55.1 Chronic vascular disorders of intestine; I10 Essential (primary) hypertension; F41.9 Anxiety disorder, unspecified; F32.9 Major depressive disorder, single episode, unspecified; E11.43 Type 2 diabetes mellitus with diabetic autonomic (poly)neuropathy; K31.84 Gastroparesis; E11.40 Type 2 diabetes mellitus with diabetic neuropathy, unspecified; K29.70 Gastritis, unspecified, without bleeding; S92.354A Nondisplaced fracture of fifth metatarsal bone, right foot, initial encounter for closed fracture; W18.39XA Other fall on same level, initial encounter; K44.9 Diaphragmatic hernia without obstruction or gangrene; K21.9 Gastro-esophageal reflux disease without esophagitis; K82.8 Other specified diseases of gallbladder; I16.0 Hypertensive urgency; Z20.822 Contact with and (suspected) exposure to COVID-19; Y93.89 Activity, other specified; Y92.89 Other specified places as the place of occurrence of the external cause; Y99.8 Other external cause status; Z86.16 Personal history of COVID-19; Z86.711 Personal history of pulmonary embolism; Z79.84 Long term (current) use of oral hypoglycemic drugs; Z79.899 Other long term (current) drug therapy; Z88.2 Allergy status to sulfonamides; Z88.8 Allergy status to other drugs, medicaments and biological substances; Z88.7 Allergy status to serum and vaccine
CPT/HCPCS: 10102; 50010; 50101; 50411; 50555; 51489; 52265; 52266; 53307; 54022; 54118; 55245; 56462; 56525; 56526; 57257; 58574; 62110; 62900; 70005

== ENCOUNTER → 2021-07-15 | Outpatient (CLI) | payer OTHER ==
[~2021-07-15] MED LIST changes: +HYDROCODON-ACE1 EAC7 PO; +METOCLOPRAMIDE10 M1 PO; +PERCOCET 7.5-31 EAC1 PO
== END ==
LOC: LAB 10:31
PROVIDERS: ATTEND Student in an Organized Health Care Education/Training Program
DX: Z01.812 Encounter for preprocedural laboratory examination (principal); Z20.822 Contact with and (suspected) exposure to COVID-19

== ENCOUNTER 2021-07-16 06:05 | Day surgery (SDC) | payer OTHER ==
[~2021-07-16] VITALS: Ht 167.6 cm; Wt 79.4 kg
--- NOTE | ~2021-07-16 | O ---
[facility] [place] [address] OPERATIVE REPORT Name: BROOKE GARNER ASHLEY Room #: 150-1 [facility] M.R.#: [id number] Admission: 07/16/21 Attend Phys: Jesse Burden MD Discharge: Date of : 55 Report #: [id number] THIS REPORT FOR: cc: Aries Billy MD, Christopher B. MD Kneidel,Jesse Fowler MD ~ DATE OF SERVICE: 07/16/2021 PREOPERATIVE DIAGNOSIS: Right foot fifth metatarsal fracture. POSTOPERATIVE DIAGNOSIS: Right foot fifth metatarsal fracture. PROCEDURE: Right foot fifth metatarsal percutaneous screw. SURGEON: Jesse Burden MD AUDIO RECORDING ENGINEER: None. ANESTHESIA: General. ESTIMATED BLOOD LOSS: Minimal. No drains. Tourniquet time was 15 minutes. COMPLICATIONS: There were no complications from the procedure. DESCRIPTION OF PROCEDURE: The patient brought to the operating room where she was placed under general anesthesia. Once under adequate general anesthesia, her right lower extremity was prepped and draped in a sterile manner. The extremity was elevated, exsanguinated, tourniquet placed 300 mmHg. Utilizing fluoroscopy for guidance, a guidewire for the 4.5 mm cannulated screw was then placed down the shaft of the fifth metatarsal. A small stab incision was made over the wire and the hemostat was used to spread the soft tissues allowing measurement of the screw, which was 50 mm. Once this was measured, the wire was drilled over and the 50 mm 4.5 mm in diameter screw from the [employer] set was then placed. Once complete, the wound was irrigated copiously and closed with prachi for the skin. Excellent fixation and alignment was achieved as verified under fluoroscopy. The wounds were dressed with Xeroform, 4 x 4's, and a sterile soft compressive dressing was placed. Tourniquet was let down at 15 minutes. Toes were pink and warm. Good capillary refill. There were no complications from the procedure. The patient tolerated the procedure well and was to the recovery room without incident. By: [id number] Jesse Burden MD /mitchell
[~2021-07-16 06:05] MED LIST changes: -PERCOCET 7.5-31 EAC1 PO
[2021-07-16 06:34] VITALS: BP 138/82
[2021-07-16] MEDS ORDERED: PERCOCET 7.5-31 EAC1 PO (08:02)
[2021-07-16 08:22] VITALS: BP 138/82
== END 2021-07-16 09:00 | disposition home or self-care (01) ==
LOC: OR → TBA 06:07 → OR 07:59
PROVIDERS: ATTEND Orthopaedic Surgery Foot and Ankle Surgery
DX: S92.351A Displaced fracture of fifth metatarsal bone, right foot, initial encounter for closed fracture (principal); M25.571 Pain in right ankle and joints of right foot; E78.00 Pure hypercholesterolemia, unspecified; E11.9 Type 2 diabetes mellitus without complications; K21.9 Gastro-esophageal reflux disease without esophagitis; F32.9 Major depressive disorder, single episode, unspecified; F41.9 Anxiety disorder, unspecified; Z98.890 Other specified postprocedural states; Z79.899 Other long term (current) drug therapy; Z88.2 Allergy status to sulfonamides; Z88.8 Allergy status to other drugs, medicaments and biological substances; X58.XXXA Exposure to other specified factors, initial encounter; Y93.89 Activity, other specified; Y92.89 Other specified places as the place of occurrence of the external cause; Y99.8 Other external cause status
CPT/HCPCS: 50010; 50101; 50386; 51412; 57091; 57180; 57457; 62110; 62900; 70005